=== PATIENT | male | born 1950 | race African-American/Black ===

== ENCOUNTER 2018-01-05 22:55 | Emergency (ER) | payer OTHER ==
[~2018-01-05] VITALS: Ht 175.3 cm; Wt 90.7 kg
--- NOTE | 2018-01-05 23:35 | ED GENERAL ADULT ---
History of Present Illness General Chief Complaint: General Adult Stated Complaint: BIBA "COUGHING UP BLOOD, AND URINARY PAIN" Source: patient Exam Limitations: no limitations Vital Signs & Intake/Output Vital Signs & Intake/Output Vital Signs Date Time Temp Pulse Resp B/P B/P Pulse O2 O2 Flow FiO2 Mean Ox Delivery Rate 01/06 0152 96 18 194/92 01/06 0003 98 01/05 2303 98 Room Air 01/05 2259 98.4 96 20 194/92 98 Room Air ED Intake and Output 01/06 0000 01/05 1200 Intake Total Output Total Balance Patient 200 lb Weight Weight Estimated Measurement Method Allergies Coded Allergies: No Known Allergies (01/05/18) Reconcile Medications Albuterol Sulfate (Ventolin Hfa) 90 MCG HFA.AER.AD 2 PUF INH Q4-6 PRN PRN WHEEZING Labetalol HCl 300 MG TABLET 1 TAB PO BID HIGH BLOOD PRESSURE Levofloxacin (Levaquin) 500 MG TABLET 1 TAB PO DAILY BRONCHITIS, UTI Metformin HCl 500 MG TABLET 1 TAB PO BID DIABETES Mupirocin Calcium (Bactroban Nasal) 2 % OINT...G. 1 GM TOP TID AFFECTED SKIN BACTROBAN OINTMENT.... APPLY TO AFFECTED AREA TID X 10 DAYS Tamsulosin HCl (Flomax) 0.4 MG CAP.ER.24H 1 CAP PO DAILY DIFFICULTY URINATING Triage Note: BIBA FROM HOME FOR C/O CO;D AND CPUGH X 4 DAYS. PT REPORTS HAVING AN EPISODE OF COUGHING UP BLOOD X1. PER EMS PT WAS HOMELESS AN JUST GOT AN APARTMENT. PT HAS DIABETES AND HTN THAT IS NOT BEING TREATED. PT HAS A WOUND TO RIGHT LOWER LEG. Triage Nurses Notes Reviewed? yes Onset: Gradual Duration: week(s): Timing: recent history Injury Environment: home Severity: mild, moderate Modifying Factors: Worsens With: other (worse w/ cough). Associated Symptoms: cough HPI: 67 yo gentleman h/o diabetes, htn, off his meds x several months, presents with 1-2 weeks of cough w/ phlegm, "and there were streaks of blood in the sputum," associated wheezing. He notes also increased urination with burning for the past 1-2 weeks. He notes no fever, chills, chest pain, nausea, vomiting, diarrhea. Past History Travel History Traveled to [place] past 21 day No Medical History Any Pertinent Medical History? see below for history Cardiovascular: hypertension Endocrine: diabetes Surgical History Surgical History: non-contributory Psychosocial History What is your primary language Upper Sorbian Tobacco Use: Never used Family History Hx Contributory? No Review of Systems Review of Systems Constitutional: Reports: no symptoms. EENTM: Reports: no symptoms. Respiratory: Reports: no symptoms. Cardiovascular: Reports: no symptoms. GI: Reports: no symptoms. Genitourinary: Reports: no symptoms. Musculoskeletal: Reports: no symptoms. Skin: Reports: no symptoms. Neurological/Psychological: Reports: no symptoms. Hematologic/Endocrine: Reports: no symptoms. Immunologic/Allergic: Reports: no symptoms. All Other Systems: Reviewed and Negative Physical Exam Physical Exam General Appearance: well developed/nourished Head: atraumatic, normal appearance Eyes: Bilateral: normal appearance. Ears, Nose, Throat: normal pharynx, normal ENT inspection, hearing grossly normal Neck: normal inspection, supple, full range of motion Respiratory: normal breath sounds, chest non-tender, no respiratory distress, quiet respiration, lungs clear Cardiovascular: regular rate/rhythm Gastrointestinal: normal bowel sounds, soft, non-tender, no organomegaly Back: normal inspection Extremities: right calf with superficial abrasion. no significant infection Neurologic/Psych: no motor/sensory deficits, awake, alert, oriented x 3 Skin: intact, normal color, warm/dry Core Measures ACS in differential dx? No CVA/TIA Diagnosis: No Sepsis Present: No Sepsis Focused Exam Completed? No Progress Differential Diagnoses I considered the following diagnoses in my evaluation of the patient: bronchitis vs uti vs other. Plan of Care: Orders Procedure Date/time Status URINALYSIS 01/06 2344 Complete TROPONIN LEVEL 01/05 2335 Complete LIPASE 01/05 2335 Complete HEPATIC FUNCTION PANEL 01/05 2335 Complete D-DIMER 01/05 2335 Complete CBC WITHOUT DIFFERENTIAL 01/05 2335 Complete BASIC METABOLIC PANEL 01/05 2335 Complete AMYLASE 01/05 2335 Complete EKG 01/05 2335 Active Laboratory Tests 01/06/18 0008: Anion Gap 7, Estimated GFR > 60, BUN/Creatinine Ratio 13.3, Glucose 177 H, Calcium 8.3 L, Total Bilirubin 0.4, Direct Bilirubin 0.4, AST 21, ALT 30, Alkaline Phosphatase 107, Troponin I 0.03, Total Protein 6.5, Albumin 3.1 L, Amylase 56, Lipase 152, D-Dimer High Sensitivty 322 H, CBC w Diff NO MAN DIFF REQ, RBC 4.98, MCV 74.1 L, MCH 23.5 L, MCHC 31.7 L, RDW 16.4 H, MPV 7.4, Gran % 73.9, Lymphocytes % 10.3 L, Monocytes % 11.7 H, Eosinophils % 3.8, Basophils % 0.3, Absolute Granulocytes 7.8 H, Absolute Lymphocytes 1.1 L, Absolute Monocytes 1.2 H, Absolute Eosinophils 0.4, Absolute Basophils 0 01/05/18 9607: Urinalysis MOD H, Urine Color STRAW, Urine Clarity HAZY H, Urine pH 6.5, Ur Specific [place] 1.010, Urine Protein 30 H, Urine Ketones NEG, Urine Nitrite NEG, Urine Bilirubin NEG, Urine Urobilinogen 0.2, Ur Leukocyte Esterase LARGE H , Ur Microscopic SEDIMENT EXAMINED, Urine RBC 25-50 H, Urine WBC PACKD H, Urine Bacteria MOD H, Urine Hemoglobin MOD H, Urine Glucose NEG Diagnostic Imaging: Viewed by Me: Radiology Read. Discussed w/RAD: Radiology Read. CXR Impression: PATIENT: LYLY RUBY PRESENT AGE: 67 PATIENT ACCOUNT NO: [id number] : 49 LOCATION: [facility] ORDERING PHYSICIAN: Samuel Philippe MD SERVICE DATE: 01/05/18 EXAM TYPE: RAD - XRY- PORTABLE CHEST XRAY EXAMINATION: XR PORTABLE CHEST CLINICAL INFORMATION: Chest pain. COMPARISON: None TECHNIQUE: Portable frontal view of the chest was obtained. FINDINGS: No airspace opacities or pleural effusions are seen. The cardiomediastinal silhouette is normal. No acute osseous abnormality is seen. IMPRESSION: No acute cardiopulmonary process. DICTATED BY: Johnson Luo MD DATE/TIME DICTATED:01/06/18 [employer] OPERATOR:YOGESH DATE/TIME TRANSCRIBED:01/06/18 CONFIDENTIAL, DO NOT COPY WITHOUT APPROPRIATE AUTHORIZATION. <Electronically signed in Other Vendor System> SIGNED BY: Johnson Luo MD 01/06/18 0004 Initial ED EKG: lvh, no acute changes. nsr. Departure Departure Disposition: HOME OR SELF CARE Condition: Stable Clinical Impression Primary Impression: Bronchitis Secondary Impressions: Abrasion, Hypertension, UTI (urinary tract infection) Referrals: Patient Has No Primary Care Dr (PCP/Family) Departure Forms: Customer Survey General Discharge Information Prescriptions: Current Visit Scripts Levofloxacin (Levaquin) 1 TAB PO DAILY #14 TAB Albuterol Sulfate (Ventolin Hfa) 2 PUF INH Q4-6 PRN PRN WHEEZING #1 INHAL Ref 1 Tamsulosin HCl (Flomax) 1 CAP PO DAILY #20 CAP Metformin HCl 1 TAB PO BID #60 TAB Labetalol HCl 1 TAB PO BID #60 TAB Mupirocin Calcium (Bactroban Nasal) 1 GM TOP TID #10 GM BACTROBAN OINTMENT.... APPLY TO AFFECTED AREA TID X 10 DAYS Comments 01/06/18, 1:12am... pt feeling better... negative trop, negative dimer by age criteria. discussed at length with patient... he has not taken his medications for several months. i restarted his metformin, wrote for labetolol, and gave levaquin which should cover community acquired bronchitis as well as uti. He will re-connect with his PMD. Critical Care Note Critical Care Note Critical Care Time: non-applicable
--- NOTE | 2018-01-06 00:04 | RADIOLOGY REPORT ---
EXAMINATION: XR PORTABLE CHEST CLINICAL INFORMATION: Chest pain. COMPARISON: None TECHNIQUE: Portable frontal view of the chest was obtained. FINDINGS: No airspace opacities or pleural effusions are seen. The cardiomediastinal silhouette is normal. No acute osseous abnormality is seen. IMPRESSION: No acute cardiopulmonary process.
[2018-01-06 00:24] LABS: ABSOLUTE BASOPHIL COUNT 0 /CUMM (0.0-0.2); ABSOLUTE EOSINOPHIL COUNT 0.4 /CUMM (0.0-0.7); ABSOLUTE GRANULOCYTE CT 7.8 /CUMM (1.4-6.5); ABSOLUTE LYMPH COUNT 1.1 /CUMM (1.2-3.4); ABSOLUTE MONOCYTE COUNT 1.2 /CUMM (0.10-0.60); BASOPHIL % 0.3 % (0.0-2.0); EOSINOPHIL % 3.8 % (0-5); GRANULOCYTE % 73.9 % (42.2-75.2); HEMATOCRIT 36.9 % (42-52); MEAN CORPUSCULAR HGB 23.5 PG (27.0-31.0); MEAN CORPUSCULAR HGB CONC 31.7 G/DL (33.0-37.0); MEAN CORPUSCULAR VOLUME 74.1 FL (80.0-94.0); MEAN PLATELET VOLUME 7.4 FL (7.4-10.4); PLATELET COUNT 302 /CUMM (130-400); RBC DISTRIBUTION WIDTH 16.4 % (11.5-14.5); RED BLOOD CELL CT 4.98 /CUMM (4.70-6.10); WHITE BLOOD CELL COUNT 10.5 /CUMM (4.8-10.8)
[2018-01-06] MEDS ORDERED: FLOMAX0.4 M1 PO (01:17)
[2018-01-06] MEDS ORDERED: VENTOLIN HFA18 GM INH (01:17)
[2018-01-06] MEDS ORDERED: LEVAQUIN500 M1 PO (01:17)
[2018-01-06] MEDS ORDERED: LABETALOL HCL300 M1 PO (01:17)
[2018-01-06] MEDS ORDERED: METFORMIN HCL500 M3 PO (01:17)
[2018-01-06] MEDS ORDERED: BACTROBAN NASAL1 GM TOP (01:19)
[2018-01-06 01:52] VITALS: BP 194/92
== END 2018-01-06 02:03 ==
LOC: ERH 22:55
PROVIDERS: Pediatrics
DX: T14.8XXA Other injury of unspecified body region, initial encounter (principal); J40 Bronchitis, not specified as acute or chronic; N39.0 Urinary tract infection, site not specified; I10 Essential (primary) hypertension; X58.XXXA Exposure to other specified factors, initial encounter; Y92.9 Unspecified place or not applicable; Y93.9 Activity, unspecified
CPT/HCPCS: 1263; 71045; 81001; 93005; 93010; J3490

== ENCOUNTER 2018-02-25 17:48 | Inpatient (IN) | payer OTHER ==
[~2018-02-25] VITALS: Ht 180.3 cm; Wt 78.5 kg
[~2018-02-25 17:48] MED LIST: BACTROBAN NASAL1 GM TOP; FLOMAX0.4 M1 PO; LABETALOL HCL300 M1 PO; LEVAQUIN500 M1 PO; METFORMIN HCL500 M3 PO; VENTOLIN HFA18 GM INH
--- NOTE | 2018-02-25 18:13 | ED GENERAL ADULT ---
History of Present Illness General Chief Complaint: General Adult Stated Complaint: BIBA WITH LEG EDEMA IN BOTH LEGS Source: patient, old records, EMS Exam Limitations: poor historian Vital Signs & Intake/Output Vital Signs & Intake/Output Vital Signs Date Time Temp Pulse Resp B/P B/P Pulse O2 O2 Flow FiO2 Mean Ox Delivery Rate 02/25 2130 97.4 97 18 173/87 100 Nasal 2.0L Cannula 02/25 1939 94 Nasal 3.0L Cannula 02/25 1753 97.3 92 18 190/87 97 Nasal 3.0L Cannula Allergies Coded Allergies: No Known Allergies (01/05/18) Reconcile Medications Albuterol Sulfate (Ventolin Hfa) 90 MCG HFA.AER.AD 2 PUF INH Q4-6 PRN PRN WHEEZING Labetalol HCl 300 MG TABLET 1 TAB PO BID HIGH BLOOD PRESSURE Levofloxacin (Levaquin) 500 MG TABLET 1 TAB PO DAILY BRONCHITIS, UTI Metformin HCl 500 MG TABLET 1 TAB PO BID DIABETES Mupirocin Calcium (Bactroban Nasal) 2 % OINT...G. 1 GM TOP TID AFFECTED SKIN BACTROBAN OINTMENT.... APPLY TO AFFECTED AREA TID X 10 DAYS Tamsulosin HCl (Flomax) 0.4 MG CAP.ER.24H 1 CAP PO DAILY DIFFICULTY URINATING Triage Nurses Notes Reviewed? yes Onset: Abrupt Duration: day(s): (1), constant, continues in ED, getting worse Timing: single episode today Injury Environment: home Severity: mild, moderate No Modifying Factors: none HPI: 59-year-old male history of hypertension and diabetes sensory evaluation of painful swollen lesions on his right lower extremity. Patient states that he is unsure exactly how long the lesions have been present but today noticed that his right lower extremity appeared swollen and black. He reports that he has also been letting off lots of discharge. He denies any fever but reports that he has been having chills recently. He also admits to cough and shortness of breath. The symptoms are worse on exertion. He denies any chest pain dizziness or lightheadedness. He reports he has not seen a doctor in many months and has not taken any medicine in a month. He is a current every day smoker. (Aaron Martin) Past History Travel History Traveled to [place] past 21 day Yes Medical History Any Pertinent Medical History? see below for history Cardiovascular: hypertension Endocrine: diabetes Surgical History Surgical History: non-contributory Psychosocial History What is your primary language Lao Family History Hx Contributory? No (Aaron Martin) Review of Systems Review of Systems Constitutional: Reports: no symptoms. EENTM: Reports: no symptoms. Respiratory: Reports: see HPI, cough, short of breath. Cardiovascular: Reports: peripheral edema. GI: Reports: no symptoms. Genitourinary: Reports: no symptoms. Musculoskeletal: Reports: no symptoms. Skin: Reports: no symptoms. Neurological/Psychological: Reports: no symptoms. Hematologic/Endocrine: Reports: no symptoms. Immunologic/Allergic: Reports: no symptoms. All Other Systems: Reviewed and Negative (Aaron Martin) Physical Exam Physical Exam General Appearance: well developed/nourished, no apparent distress, alert, awake Head: atraumatic, normal appearance Eyes: Bilateral: normal appearance, PERRL, EOMI. Ears, Nose, Throat: normal pharynx, normal ENT inspection, hearing grossly normal Neck: normal inspection, supple, full range of motion Respiratory: chest non-tender, no respiratory distress, crackles, wheezing Cardiovascular: regular rate/rhythm, normal peripheral pulses Peripheral Pulses: 2+ radial (R), 2+ radial (L) Gastrointestinal: normal bowel sounds, soft, non-tender, no organomegaly Back: normal inspection, normal range of motion Extremities: THERE IS BILATERAL LOWER EXTREMITY EDEMA. tHERE IS A 5 CM ULCERATION LOCATED ON THE RIGHT POSTERIOR LOWER EXTREMITY. tHERE IS WEEPING OF SEROUS DISCHARGE. nO UNDERLYING ERYTHEMA AND NO PURULENT DISCHARGE IT IS TENDER TO PALPATION NO FOCAL FLUCTUANT AREAS Neurologic/Psych: no motor/sensory deficits, awake, alert, oriented x 3 Skin: intact, normal color, warm/dry Lymphatic: no anterior cervical tom Core Measures ACS in differential dx? No CVA/TIA Diagnosis: No Sepsis Present: No Sepsis Focused Exam Completed? No (Aaron Martin) Progress Differential Diagnoses I considered the following diagnoses in my evaluation of the patient: [CHF exacerbation, COPD exacerbation, acute coronary syndrome, electrolyte abnormality, osteomyelitis, DVT, cellulitis, peripheral vascular disease] Plan of Care: Orders Procedure Date/time Status Heart Healthy Diet 02/26 B Active Misc Message 02/26 2244 Active ED Holding Orders 02/26 2244 Active Patient Data 02/26 2244 Active Vital Signs 02/26 2244 Active Code Status 06/12 2244 Active Admit to inpatient 02/25 2238 Active TROPONIN LEVEL 02/25 2208 Active EKG 02/25 220 Active URINE DRUG SCREEN FOR ER ONLY 02/25 2144 Active Add-on Test (ER Only) 02/26 2036 Active Add-on Test (ER Only) 02/25 1923 Active BLOOD CULTURE 02/25 1922 Active D-DIMER 02/25 192 Complete ETHANOL 02/25 1815 Complete Add-on Test (ER Only) 02/25 180 Active BLOOD CULTURE 02/25 180 Active URINALYSIS 02/25 1753 Complete TROPONIN LEVEL 02/25 1753 Complete LACTIC ACID 02/25 1753 Complete WESTERGREN SED RATE 02/25 1753 Complete C-REACTIVE PROTEIN 02/25 1753 Complete COMPREHENSIVE METABOLIC PANEL 02/25 1753 Complete CBC WITHOUT DIFFERENTIAL 02/25 175 Complete B-TYPE NATRIURETIC PEP (BNP) 02/25 175 Complete EKG 02/25 1753 Active Current Medications Sig/Wil Start time Last Medication Dose Stop Time Status Admin Nitroglycerin 1 GM ONCE ONE 02/25 2230 UNVr 02/25 (Nitro-Bid) 02/25 2231 223 Laboratory Tests 02/25/185: Urine Opiates Screen Pending, Methadone Screen Pending, Barbiturate Screen Pending, Ur Phencyclidine Scrn Pending, Amphetamines Screen Pending, U Benzodiazepines Scrn Pending, Urine Cocaine Screen Pending, Urine Cannabis Screen Pending, Urine Color YEL, Urine Clarity CLEAR, Urine pH 6.5, Ur Specific [place] 1.010, Urine Protein 30 H, Urine Ketones NEG, Urine Nitrite NEG, Urine Bilirubin NEG, Urine Urobilinogen 0.2, Ur Leukocyte Esterase NEG, Ur Microscopic SEDIMENT EXAMINED, Urine RBC RARE, Urine WBC RARE, Ur Epithelial Cells RARE, Urine Bacteria RARE H, Urine Hemoglobin NEG, Urine Glucose NEG 02/25/181921: D-Dimer High Sensitivty 238 02/25/181814: Anion Gap 7, Estimated GFR > 60, BUN/Creatinine Ratio 11.1, Glucose 113 H, Lactic Acid 1.4, Calcium 8.8, Total Bilirubin 0.2, AST 20, ALT 21, Alkaline Phosphatase 137 H, Troponin I 0.02, C-Reactive Prot, Quant 1.5 H, Pro-B- Natriuretic Pept 3730 H, Total Protein 6.8, Albumin 3.1 L, Globulin 3.7, Albumin/Globulin Ratio 0.8 L, CBC w Diff NO MAN DIFF REQ, RBC 5.58, MCV 72.8 L , MCH 22.6 L, MCHC 31.0 L, RDW 16.6 H, MPV 7.3 L, Gran % 66.1, Lymphocytes % 16.8 L, Monocytes % 8.8, Eosinophils % 7.9 H, Basophils % 0.4, Absolute Granulocytes 4.6, Absolute Lymphocytes 1.2, Absolute Monocytes 0.6, Absolute Eosinophils 0.6, Absolute Basophils 0, ESR Westergren 11 H, Serum Alcohol < 10.0 Microbiology 02/25 1950 BLOOD: Blood Culture - RECD 02/25 1922 BLOOD: Blood Culture - RECD 02/25 1815 BLOOD: Blood Culture - CAN Cancelled: Quantity not sufficient for both blood culture bottles. Patient seen and evaluated. He is here with bilateral lower exterminate edema shortness of breath and right lower trauma wounds. On exam he's got crackles and wheezing. He currently is on oxygen 2 L nasal cannula. This is removed he desaturates to the 80s. He has a right lower extremity ulcerated lesion located to the posterior right lower leg there is also macerated tissue to the heel. X- rays of the heel obtained. Labs chest x-ray EKG ordered. Patient was given a DuoNeb for his wheezing. EKG shows lateral ST wave depressions that are new. His ST elevations are not new and appear unchanged. Blood work shows elevated BNP. D-dimer is negative. Sedimentation rate and CRP are only mildly elevated. No white count. X-ray of the heel is negative. Chest x-ray shows airspace disease. A CT of the chest will be obtained for further evaluation due to patient's hypoxia. CT the chest shows interstitial edema. IV Lasix and Nitropaste ordered. Patient will require admission to the hospital. Case discussed with Dr. Low he agrees. Diagnostic Imaging: Viewed by Me: Radiology Read. Discussed w/RAD: Radiology Read. Radiology Impression: PATIENT: LYLY RUBY PRESENT AGE: 67 PATIENT ACCOUNT NO: [id number] : 49 LOCATION: [facility] ORDERING PHYSICIAN: Aaron HOYOS SERVICE DATE: 02/25/18 EXAM TYPE: RAD - XRY- HEEL, RIGHT EXAMINATION: XR CALCANEUS, RIGHT CLINICAL INFORMATION: Right foot ulceration at the plantar aspect of the calcaneus. Poorly controlled diabetes. Diagnosis of osteomyelitis. COMPARISON: None TECHNIQUE: Lateral and axial views of the right calcaneus were obtained. FINDINGS: Minimal osteoarthritis is present at the talocrural navicular and naviculocuneiform joints. No fracture or malalignment. Soft tissues are swollen. No radiographic findings of osteomyelitis. IMPRESSION: Soft tissue swelling at the hindfoot. No radiographic findings of osteomyelitis. DICTATED BY: Jair Moran MD DATE/TIME DICTATED:09/02 ER PHYSICIAN:YOGESH DATE/TIME TRANSCRIBED:02/25/182011 CONFIDENTIAL, DO NOT COPY WITHOUT APPROPRIATE AUTHORIZATION. <Electronically signed in Other Vendor System> SIGNED BY: Jair Moran MD 02/25/18 2, PATIENT: LYLY RUBY PRESENT AGE: 67 PATIENT ACCOUNT NO: [id number] : 49 LOCATION: [facility] ORDERING PHYSICIAN: Aaron HOYOS SERVICE DATE: 02/25/18 EXAM TYPE: RAD - XRY-PORTABLE CHEST XRAY EXAMINATION: XR PORTABLE CHEST CLINICAL INFORMATION: CHF. Lower extremity edema. COMPARISON: Chest radiograph 01/05/2018. TECHNIQUE: Portable frontal view of the chest was obtained. FINDINGS: There is background prominence of the interstitium and mild peribronchial thickening. There is no dense consolidation, alveolar edema, pleural effusion, or pneumothorax. The heart is top normal in size allowing for patient rotation. The osseous structures are intact. IMPRESSION: Background prominence of the interstitium with peribronchial thickening. The findings are nonspecific but could reflect small airways disease. DICTATED BY: Everardo Solis MD DATE/TIME DICTATED:02/25/181832 ER PHYSICIAN:YOGESH DATE/TIME TRANSCRIBED:02/25/181832 CONFIDENTIAL, DO NOT COPY WITHOUT APPROPRIATE AUTHORIZATION. <Electronically signed in Other Vendor System> SIGNED BY: Everardo Solis MD 02/25/181838, PATIENT: LYLY RUBY PRESENT AGE: 67 PATIENT ACCOUNT NO: [id number] : 49 LOCATION: [facility] ORDERING PHYSICIAN: Aaron HOYOS SERVICE DATE: 02/25/18 EXAM TYPE: CAT - CT CHEST WO IV CONTRAST EXAMINATION: CT CHEST WITHOUT CONTRAST CLINICAL INFORMATION: Shortness of breath. Hypoxia. Presumptive diagnosis: Pneumonia, edema COMPARISON: Chest radiograph from the same date TECHNIQUE: Multidetector volumetric CT imaging of the chest was done. Axial MIP volume rendering provided. Sagittal and coronal reformatted images were obtained. DLP: 234 mGy-cm FINDINGS: LUNGS: Centrilobular emphysema is present in the upper lobes bilaterally, right greater than left. There is interlobular septal thickening in the lung bases as well as the lung apices in addition to thickening of the peribronchial vascular interstitium centrally, consistent with interstitial edema. Patchy foci of groundglass attenuation in the upper and lower lobes likely correspond to very early foci of alveolar edema. No velasquez consolidation is identified. No discrete pulmonary nodules are identified, though sensitivity is limited by the background interstitial opacities. MEDIASTINUM: Mild cardiomegaly. Calcific atherosclerosis is present in the coronary arteries. Thoracic aorta is normal in caliber with mild calcific atherosclerosis. No appreciable mediastinal or hilar adenopathy. PLEURA: Trace right pleural effusion. AXILLA: No lymphadenopathy. UPPER ABDOMEN: Multiple sharply demarcated hypoattenuating foci are present in the liver, most compatible with cysts. The largest of these is a water density 4.4 cm cyst in hepatic segment 5 medially. A 2 cm cystic focus is present in hepatic segment 4A superiorly. Gallbladder is unremarkable. There is relative atrophy of the left kidney. OSSEOUS STRUCTURES: Mild multilevel degenerative disc disease present in the thoracic spine. A fracture is present at the seventh rib posterolaterally, likely subacute in nature given the bone resorption at the margins. IMPRESSION: 1. Mild cardiomegaly with pulmonary interstitial edema with subtle findings of early alveolar edema, and a trace right-sided effusion. 2. Mild to moderate centrilobular emphysema 3. Fracture of the right seventh rib posteriorly, likely subacute. DICTATED BY: Jair Moran MD DATE/TIME DICTATED:02/25/182209 ER PHYSICIAN:YOGESH DATE/TIME TRANSCRIBED:02/25/182209 CONFIDENTIAL, DO NOT COPY WITHOUT APPROPRIATE AUTHORIZATION. Initial ED EKG: normal sinus rhythm, LVH, LEFT ATRIAL ABN, ANTERIOR ST ELEVATIONS UNCHANGED FROM PREVIOUS, ST WAVE CHANGES IN LATERAL LEADS Prior EKG: changed Comments: PATIENT: LYLY RUBY PRESENT AGE: 67 PATIENT ACCOUNT NO: [id number] : 49 LOCATION: [facility] ORDERING PHYSICIAN: Aaron HOYOS SERVICE DATE: 02/25/18 EXAM TYPE: RAD - XRY-PORTABLE CHEST XRAY EXAMINATION: XR PORTABLE CHEST CLINICAL INFORMATION: CHF. Lower extremity edema. COMPARISON: Chest radiograph 01/05/2018. TECHNIQUE: Portable frontal view of the chest was obtained. FINDINGS: There is background prominence of the interstitium and mild peribronchial thickening. There is no dense consolidation, alveolar edema, pleural effusion, or pneumothorax. The heart is top normal in size allowing for patient rotation. The osseous structures are intact. IMPRESSION: Background prominence of the interstitium with peribronchial thickening. The findings are nonspecific but could reflect small airways disease. DICTATED BY: Everardo Solis MD DATE/TIME DICTATED:02/25/181832 ER PHYSICIAN:YOGESH DATE/TIME TRANSCRIBED:02/25/181832 CONFIDENTIAL, DO NOT COPY WITHOUT APPROPRIATE AUTHORIZATION. (Aaron Martin) Comments: 02/25/2018 6:17:27 PM patient's EKG shows ST segment elevations in the anterior leads that are similar to a prior EKG. The patient does have T-wave inversions laterally that are new compared to previous. The patient denies chest pain and these changes are of an unclear nature. A troponin will be checked and patient' s vital signs monitored. (Maranda GUERRERO,Corby Mcdonald) Departure Departure Disposition: STILL A PATIENT Condition: Stable Clinical Impression Primary Impression: CHF exacerbation Qualifiers: Heart failure type: unspecified Qualified Code: I50.9 - Heart failure, unspecified Secondary Impressions: Acute electrocardiogram changes Referrals: Patient Has No Primary Care Dr (PCP/Family) Departure Forms: Customer Survey General Discharge Information Admission Note Spoke With: Jazz GUERRERO,Varsha Documentation of Exam: Documentation of any treatments & extenuating circumstances including Concerns Regarding Discharge (functional status, medication knowledge or non-compliance, living conditions, etc.) that warrant an admission rather than observation: [IV diuresis, cardiology consult, echocardiogram, telemetry, serial labs, serial chest x-rays, DuoNeb's, serial EKGs] (Aaron Martin) PA/ANIMAL KEEPER HEAD Co-Sign Statement Statement: ED Attending supervision documentation- [x] I saw and evaluated the patient. I have also reviewed all the pertinent lab results and diagnostic results. I agree with the findings and the plan of care as documented in the PA's/ANIMAL KEEPER HEAD's documentation. Patient presents for evaluation of worsening lower extremity edema with skin ulcerations. Physical examination reveals a comfortable appearing gentleman with 2-3+ lower extremity pitting edema and scattered ulcerations. Patient denies chest discomfort currently. [] I have reviewed the ED Record and agree with the PA's/ANIMAL KEEPER HEAD's documentation. [] Additions or exceptions (if any) to the PAs/ANIMAL KEEPER HEAD's note and plan are summarized below: [] (Maranda GUERRERO,Corby Mcdonald) Critical Care Note Critical Care Note Critical Care Time: non-applicable (Aaron Martin)
[2018-02-25 18:35] LABS: ABSOLUTE BASOPHIL COUNT 0 /CUMM (0.0-0.2); ABSOLUTE EOSINOPHIL COUNT 0.6 /CUMM (0.0-0.7); ABSOLUTE GRANULOCYTE CT 4.6 /CUMM (1.4-6.5); ABSOLUTE LYMPH COUNT 1.2 /CUMM (1.2-3.4); ABSOLUTE MONOCYTE COUNT 0.6 /CUMM (0.10-0.60); BASOPHIL % 0.4 % (0.0-2.0); EOSINOPHIL % 7.9 % (0-5); GRANULOCYTE % 66.1 % (42.2-75.2); HEMATOCRIT 40.6 % (42-52); MEAN CORPUSCULAR HGB 22.6 PG (27.0-31.0); MEAN CORPUSCULAR VOLUME 72.8 FL (80.0-94.0); MEAN PLATELET VOLUME 7.3 FL (7.4-10.4); PLATELET COUNT 332 /CUMM (130-400); RBC DISTRIBUTION WIDTH 16.6 % (11.5-14.5); RED BLOOD CELL CT 5.58 /CUMM (4.70-6.10)
--- NOTE | 2018-02-25 18:39 | RADIOLOGY REPORT ---
EXAMINATION: XR PORTABLE CHEST CLINICAL INFORMATION: CHF. Lower extremity edema. COMPARISON: Chest radiograph 01/05/2018. TECHNIQUE: Portable frontal view of the chest was obtained. FINDINGS: There is background prominence of the interstitium and mild peribronchial thickening. There is no dense consolidation, alveolar edema, pleural effusion, or pneumothorax. The heart is top normal in size allowing for patient rotation. The osseous structures are intact. IMPRESSION: Background prominence of the interstitium with peribronchial thickening. The findings are nonspecific but could reflect small airways disease.
--- NOTE | 2018-02-25 20:16 | RADIOLOGY REPORT ---
EXAMINATION: XR CALCANEUS, RIGHT CLINICAL INFORMATION: Right foot ulceration at the plantar aspect of the calcaneus. Poorly controlled diabetes. Diagnosis of osteomyelitis. COMPARISON: None TECHNIQUE: Lateral and axial views of the right calcaneus were obtained. FINDINGS: Minimal osteoarthritis is present at the talocrural navicular and naviculocuneiform joints. No fracture or malalignment. Soft tissues are swollen. No radiographic findings of osteomyelitis. IMPRESSION: Soft tissue swelling at the hindfoot. No radiographic findings of osteomyelitis.
--- NOTE | 2018-02-25 22:21 | CT SCAN REPORT ---
EXAMINATION: CT CHEST WITHOUT CONTRAST CLINICAL INFORMATION: Shortness of breath. Hypoxia. Presumptive diagnosis: Pneumonia, edema COMPARISON: Chest radiograph from the same date TECHNIQUE: Multidetector volumetric CT imaging of the chest was done. Axial MIP volume rendering provided. Sagittal and coronal reformatted images were obtained. DLP: 234 mGy-cm FINDINGS: LUNGS: Centrilobular emphysema is present in the upper lobes bilaterally, right greater than left. There is interlobular septal thickening in the lung bases as well as the lung apices in addition to thickening of the peribronchial vascular interstitium centrally, consistent with interstitial edema. Patchy foci of groundglass attenuation in the upper and lower lobes likely correspond to very early foci of alveolar edema. No velasquez consolidation is identified. No discrete pulmonary nodules are identified, though sensitivity is limited by the background interstitial opacities. MEDIASTINUM: Mild cardiomegaly. Calcific atherosclerosis is present in the coronary arteries. Thoracic aorta is normal in caliber with mild calcific atherosclerosis. No appreciable mediastinal or hilar adenopathy. PLEURA: Trace right pleural effusion. AXILLA: No lymphadenopathy. UPPER ABDOMEN: Multiple sharply demarcated hypoattenuating foci are present in the liver, most compatible with cysts. The largest of these is a water density 4.4 cm cyst in hepatic segment 5 medially. A 2 cm cystic focus is present in hepatic segment 4A superiorly. Gallbladder is unremarkable. There is relative atrophy of the left kidney. OSSEOUS STRUCTURES: Mild multilevel degenerative disc disease present in the thoracic spine. A fracture is present at the seventh rib posterolaterally, likely subacute in nature given the bone resorption at the margins. IMPRESSION: 1. Mild cardiomegaly with pulmonary interstitial edema with subtle findings of early alveolar edema, and a trace right-sided effusion. 2. Mild to moderate centrilobular emphysema 3. Fracture of the right seventh rib posteriorly, likely subacute.
--- NOTE | 2018-02-25 23:14 | History & Physical ---
Taylor Padilla MD,[facility] 02/25/18 2314: General Information and HPI MD Statement: I have seen and personally examined LYLY RUBY and documented this H&P. The patient is a 67 year old M who presented with a patient stated chief complaint of [swelling of leg]. Source of Information: patient Exam Limitations: poor historian History of Present Illness: Patient is 67 Y M with PMH of HTN, DM was BIBA to ED for evaluation of bilateral LE swelling. Patient is poor historian, he had no other contact info, no close friend, no family member except his old mother in facility in [place], he also was homeless for 9 months before moving to [place] in December 2017. Patient noted that for the last several months as he had increased swelling of bilateral lower extremity, but he couldn't remember any specific day. This morning he noticed his R LE was more swollen and turned to black (after which he called EMS and was transferred to ED), which was associated with increased sharp pain over the foot area. He also noted fluid discharge from bilateral LE skin lesions. he reported some chills but denied any fever. He also reported SOB, especialy with excertion, cough (?sputum) but denied any chest pain. Patient noted he didn't see a doctor for a long time except a recent visit that he had to ED at [facility] in December for bronchitis/UTI for which she received Levaquin. His other medications including blood sugar medications were re- filled but he ran out of them for long time and did not take any medications for the last month. He was also instructed to follow with his PCP which he did not do. His baseline is independent, he is able to walk occasionally with assistance of a johnston, lives in an apartment currently. He reported smoking a daily basis but tonight drinking alcohol or other recreational drugs. Allergies/Medications Allergies: Coded Allergies: No Known Allergies (01/05/18) Past History Travel History Traveled to [place] past 21 day Yes Medical History Neurological: NONE EENT: NONE Cardiovascular: hypertension Respiratory: NONE Gastrointestinal: NONE Hepatic: NONE Renal: NONE Musculoskeletal: NONE Psychiatric: NONE Endocrine: diabetes Surgical History Surgical History: non-contributory Review of Systems Review of Systems Constitutional: Reports: see HPI. Exam & Diagnostic Data Last 24 Hrs of Vital Signs/I&O Vital Signs Date Time Temp Pulse Resp B/P B/P Pulse O2 O2 Flow FiO2 Mean Ox Delivery Rate 02/26 0009 98.7 102 22 168/99 98 Nasal 2.0L Cannula 02/25 2130 97.4 97 18 173/87 100 Nasal 2.0L Cannula 02/25 1939 94 Nasal 3.0L Cannula 02/25 1753 97.3 92 18 190/87 97 Nasal 3.0L Cannula Intake & Output 02/26 0800 02/26 0000 02/25 1600 Intake Total Output Total 300 1000 Balance -300 -1000 Output, Urine 300 1000 Patient 225 lb Weight Physical Exam General Appearance Alert, Oriented X3, No Acute Distress, not cooperative Skin bilateral LE edema, skin changes, skin color changes bilaterally pulses present bilaterally. right foot sensitive to touch Skin Temp/Moisture Exam: Warm/Dry Sepsis Skin Exam (color): Normal for Ethnicity HEENT Atraumatic, bilateral congestion of conjectivea, closes eye to light Cardiovascular Normal S1, Normal S2, systolic murmur Lungs Clear to Auscultation, Normal Air Movement Abdomen Soft, No Tenderness Neurological Strength at 5/5 X4 Ext Extremities as noted above Vascular Pulses Symmetrical, present Last 24 Hrs of Labs/Sandro: Laboratory Tests 02/26/18 0030: Troponin I Cancelled 02/25/18 2246: Troponin I 0.02 02/25/18 2145: Urine Opiates Screen < 100, Methadone Screen < 40, Barbiturate Screen < 60, Ur Phencyclidine Scrn < 6.00, Amphetamines Screen < 100, U Benzodiazepines Scrn < 85, Urine Cocaine Screen < 50, Urine Cannabis Screen < 5.00, Urine Color YEL, Urine Clarity CLEAR, Urine pH 6.5, Ur Specific [place] 1.010, Urine Protein 30 H, Urine Ketones NEG, Urine Nitrite NEG, Urine Bilirubin NEG, Urine Urobilinogen 0.2, Ur Leukocyte Esterase NEG, Ur Microscopic SEDIMENT EXAMINED, Urine RBC RARE , Urine WBC RARE, Ur Epithelial Cells RARE, Urine Bacteria RARE H, Urine Hemoglobin NEG, Urine Glucose NEG 02/25/18 1922: D-Dimer High Sensitivty 238 02/25/18 1815: Anion Gap 7, Estimated GFR > 60, BUN/Creatinine Ratio 11.1, Glucose 113 H, Lactic Acid 1.4, Calcium 8.8, Total Bilirubin 0.2, AST 20, ALT 21, Alkaline Phosphatase 137 H, Troponin I 0.02, C-Reactive Prot, Quant 1.5 H, Pro-B- Natriuretic Pept 3730 H, Total Protein 6.8, Albumin 3.1 L, Globulin 3.7, Albumin/Globulin Ratio 0.8 L, CBC w Diff NO MAN DIFF REQ, RBC 5.58, MCV 72.8 L , MCH 22.6 L, MCHC 31.0 L, RDW 16.6 H, MPV 7.3 L, Gran % 66.1, Lymphocytes % 16.8 L, Monocytes % 8.8, Eosinophils % 7.9 H, Basophils % 0.4, Absolute Granulocytes 4.6, Absolute Lymphocytes 1.2, Absolute Monocytes 0.6, Absolute Eosinophils 0.6, Absolute Basophils 0, ESR Westergren 11 H, Serum Alcohol < 10.0 Microbiology 02/25 1950 BLOOD: Blood Culture - RECD 02/25 1922 BLOOD: Blood Culture - RECD 02/25 1815 BLOOD: Blood Culture - CAN Cancelled: Quantity not sufficient for both blood culture bottles. Assessment/Plan Assessment: Patient is 67 Y M was BIBA to ED for evaluation of bilateral LE swelling. PMH of HTN, DM VS, Ph Ex at admission: No fever, BP 190/87, saturating in 2L NC, RR and TX insignificant EKG: NSR, St elevation in v2, v3, v4, T invert v1 and V1 Labs at admission: WBC 7, WBC 12.6, MCV 72, RDW 16.6 bicarb 31, AG 7, others insignificant, Glu 113, CRP 1.5, proBNP 3730, U tox negative Urinalysis, insignificant Imagings at admission: chest xray: Background prominence of the interstitium with peribronchial thickening. The findings are nonspecific but could reflect small airways disease. Heel xray: Soft tissue swelling at the hindfoot. No radiographic findings of osteomyelitis. Chest CT: 1. Mild cardiomegaly with pulmonary interstitial edema with subtle findings of early alveolar edema, and a trace right-sided effusion. 2. Mild to moderate centrilobular emphysema 3. Fracture of the right seventh rib posteriorly, likely subacute. Patient was admitted to telemetry floor for management of following conditions: Acute pulm edema due to CHF bilateral LE edema, no sign of infection chronic medical conditions: HTN -Admit to telemetry for -Blood pressure monitor tech -O2 supplement, pulse ox -Patient received IV Lasix in the ED, losartan for blood pressure - check iron panel - HB a1c -Cardio consult in AM - Echo in AM FC DVT PPx: ALPS and lovenox Diabetic diet As Ranked By This Provider Problem List: 1. Hypertension 2. CHF exacerbation Qualifiers Heart failure type: unspecified Qualified Code: I50.9 - Heart failure, unspecified Core Measures/Misc (06/02) Acute Coronary Syndrome ACS Diagnosis: No Congestive Heart Failure Congestive Heart Failure Diagnosis Yes Cerebrovascular Accident CVA/TIA Diagnosis: No VTE (View Protocol) VTE Risk Factors Age>40 No Mechanical VTE Prophylaxis d/t N/A MechProphylax Ordered No VTE Pharm Prophylaxis d/t NA PharmProphylax ordered Sepsis (View protocol) Sepsis Present: No If YES complete Sepsis Event Note If YES complete Sepsis Event Note Anatoliy Heath 02/25/18 7176: General Information and HPI Allergies/Medications Home Med list Albuterol Sulfate (Ventolin Hfa) 90 MCG HFA.AER.AD 2 PUF INH Q4-6 PRN PRN WHEEZING Aspirin (Aspirin*) 81 MG TAB.CHEW 81 MG PO DAILY HEART HEALTH Atorvastatin Calcium 40 MG TABLET 1 TAB PO DAILY HIGH CHOLESTROL Furosemide (Lasix) 40 MG TABLET 40 MG PO 7:30 AM, & 4:30 PM WATER RETENTION Lisinopril 10 MG TABLET 10 MG PO DAILY HIGH BLOOD PRESSURE Metformin HCl 500 MG TABLET 1 TAB PO BID DIABETES Tamsulosin HCl (Flomax) 0.4 MG CAP.ER.24H 1 CAP PO DAILY DIFFICULTY URINATING Core Measures/Misc (06/02) Sepsis (View protocol) If YES complete Sepsis Event Note If YES complete Sepsis Event Note Resident Review Statement Resident Statement: examined this patient, discussed with campus recruiting intern, agreed with campus recruiting intern Other Findings: This is a 67-year-old male with past medical history of hypertension, diabetes mellitus presented to the emergency department for evaluation of painful swollen lesions of the right lower extremity which are now blackening according to him. The patient is a very poor historian, has been living on [address] for the last approximately one year, recently moved to [place] in December 2017, as per him he lives with his mother and takes care of her. He Does not have any family or any personal computer specialist , friend or neighbor other than mother whom he takes care of. He has not seen a doctor for many many years.He was at a behavioral facilty for last 30 years. At baseline he does have swelling in his bilateral lower extremity however more recently he states that they have been worsening, they are associated with sharp and dragging kind of pain and they started blackening which got him concerned and therefore he was brought in by ambulance to [facility]. He also endorses that the swelling has been associated with lots of discharge. He has some mild cough and shortness of breath which is worse on exertion. He denied any fever, chills, lightheadedness, dizziness, chest pain, diarrhea, burning urine. He is a current every day smoker smokes about 1-1/2 pack per day. He drinks alcohol occasionally. He used to smoke marijuana previously, however recently he does not smoke it. He used to use cocaine when he was young, recently he does not use it. As per him he has been living on the [address] as he lost his house. He was seen in the emergency department by Dr. Philippe January 05, 2018 for coughing up blood and urinary pain. He was found to have high blood pressure of 194/92 at that time, was given 1 tablet twice daily of labetalol. He was discharged with 14 tablets of levofloxacin for urinary tract infection, he was given an inhaler albuterol, Flomax, metformin, labetalol and mupirocin upon discharge. Other than that he has not seen any doctors for many many years, does not obviously have a primary care either. He took his medications that were prescribed from the emergency department until he ran out of it and after that he has not been taking any medications. His vitals on presentation were blood pressure of 190/87, pulse of 92, temperature 97.3, respiration of 18, he was saturating 97% on 3 L of nasal cannula. White count of 7.0, H/H of 12.6/40.6, platelet of 332. Sodium of 136, potassium of 4.4, chloride of 99, bicarb 31, BUN/creatinine 10/ 0.9, glucose 113, lactic acid 1.4, calcium of 8.8, alkaline phosphatase 137, C- reactive protein 1.5, proBNP 3730. Chest x-ray showed background prominence of interstitium with peribronchial thickening, nonspecific finding but could reflect small airway disease. X-ray of the right heel showed soft tissue swelling at the hindfoot, no radiographic findings of osteomyelitis. CT chest showed mild cardiomegaly with pulmonary interstitial edema with subtle findings of early alveolar edema, stasis right-sided effusion, mild to moderate centrilobular emphysema, fracture of the right seventh rib posteriorly likely subacute. Problem list along with assessment and plan. Problem #1 bilateral lower extremity edema with blackening of the skin, ulceration, stasis dermatitis. Problem #2 CHF exacerbation. Problem #3 history of diabetes mellitus. Problem #4 hypertension. Problem #5 COPD/emphsema Problem #6 Right foot soft tissue swelling Problem #1 CHF exacerbation -Admit the patient to telemetry floor for continuous cardiac monitoring -continue to monitor intakes and output - daily weight check -he received 1 time of IV 40 mg of Lasix while in the ER and also received nitroglycerin 1 g once daily. -Ct IV Lasix 40 mg daily for now. -Obtain echocardiogram in the a.m., cardiology consult. -Continue to monitor electrolytes while on IV diuresis. -Consider starting JOAO inhibitors. -Echocardiogram #2 Bilateral lower extremity edema with ulceration, blackening of the skin, stasis dermatitis. -Various differential of his bilateral lower extremity blackening and edema could be venous insufficiency versus peripheral arterial disease, bilateral lower extremities are warm, tender to touch on the right foot, they have overlying blebs and the skin is extremely darkened. -Pulses are weakly palpable. -Consider Vascular surgery consult. -Bilateral lower extremity ultrasound. -Continue IV diuresis, continue to monitor intakes and output, wound care consult in a.m. Problem #3 ? Possible diabetes mellitus. -Patient was previously on metformin as per his history, was prescribed metformin by Dr. Philippe while in the emergency department in December. -Continue to monitor fingersticks. -We will start NovoLog sliding scale if the sugars are high. Problem #4 hypertension. -Patient's blood pressure is on the higher side, was given labetalol by Dr. Philippe while at the ER, does not take any medications on a regular basis. -Can start him on JOAO inhibitors. Problem #5 COPD/emphysema. -TRC evaluation, continue to maintain oxygen while maintaining the saturation greater than 92%, continuous pulse oximetry, patient needs to be on inhalers. Problem #6 Right foot soft tissue swelling. -Ct right foot with iv contrast -wound care consult in am. FC CHF diet dvt px levnox Varsha Schulz 02/26/18 0549: Core Measures/Misc (06/02) Sepsis (View protocol) If YES complete Sepsis Event Note If YES complete Sepsis Event Note Attending MD Review Statement Attending Statement Attending MD Statement: examined this patient, discuss w/resident/PA/[employer], agreed w/resident/PA/[employer], reviewed EMR data (avail), reviewed images, amended to note Attending Assessment/Plan: CC: Blackening of legs PMH: DM, HTN, congestive heart failure Patient came to ER with complaint of blackish discoloration of bilateral lower extremity that he noticed today. Right foot is more painful, swollen and black colored. He also endorses fever and chills at home, dyspnea on exertion, cough but denies any chest pain, chest tightness, dizziness, lightheadedness. Patient is poor historian. He does not follow-up regularly with physicians, ran out of medications a few months back and has been noncompliant since then. He was previously seen in ER in December at that time he received prescription for labetalol, metformin and inhalers but even after that he did not follow-up with physician. He states that his abdomen is more distended than usual. Vitals: Temperature 97.3, pulse 92, RR 18, blood pressure 190/87, saturating 97% on 2 L nasal cannula On exam: A O 3, cooperative, no acute distress, neck supple, JVD elevated, no lymphadenopathy, mucosa moist, no focal neurological deficit, bilateral lower extremity +2 edema, there is blackish discoloration of lower extremities which appears chronic, denuded areas on calfs bilaterally. Right foot is swollen, tender but does not appear red, superficially weeping, I obtained dorsalis pedes and posterior tibial pulses with Doppler which were equal bilaterally, peripheral perfusion and refill normal, temperature of the lower extremities normal. CVS: S1-S2, loud P2 RRR. RS: Clear to auscultate bilaterally. Abdomen: Soft, NT, ND, bowel sounds present. CT chest without IV contrast: 1. Mild cardiomegaly with pulmonary interstitial edema with subtle findings of early alveolar edema, and a trace right-sided effusion. 2. Mild to moderate centrilobular emphysema 3. Fracture of the right seventh rib posteriorly, likely subacute. Heel x-ray right: Soft tissue swelling at the hindfoot. No radiographic findings of osteomyelitis. Assessment and plan 67-year-old male with past medical history of DM, HTN, Hx, possible COPD and noncompliant with all his medication presented in ER for worsening lower extremity swelling, skin discoloration, dyspnea on exertion, cough. On examination he has bilateral lower extremity +2 edema, there is blackish discoloration of lower extremities which appears chronic, denuded areas on calfs bilaterally. Right foot is swollen, tender but does not appear red, superficially weeping, I obtained dorsalis pedes and posterior tibial pulses with Doppler which were equal bilaterally, peripheral perfusion and refill normal, temperature of the lower extremities normal. Even though patient mentions that he noticed blackish discoloration of lower extremities today it appears more chronic. The right foot is more swollen and very tender. X-ray shows soft tissue swelling but we will obtain CT with contrast for further evaluation. Meanwhile patient also has acute exacerbation of heart failure, received IV Lasix in ER with symptomatic improvement. We will resume on his home medications for chronic medical conditions + Acute exacerbation of heart failure with unknown ejection fraction + Denuded skin area bilateral lower extremity + Right foot pain and swelling + Noncompliance + History of DM, HTN, congestive heart failure - Admit to telemetry - Continuous telemetry monitoring - Serial troponin ECGs - 2-D echocardiogram in a.m. - Lasix 40 mg IV twice a day - Start lisinopril 5 by mouth daily - Sliding scale insulin with Accu-Cheks - Cardiology consult - Strict I's and O's - Daily weights - Wound care consult - Check HbA1c - Right foot CT with IV contrast - When necessary nebs - DVT prophylaxis
[2018-02-26 01:08] VITALS: BP 166/80
--- NOTE | 2018-02-26 05:50 | Admission Certification ---
Admission Certification Certification Statement - As attending physician, I certify that at the time of - admission, based on clinical presentation, severity of - symptoms, need for further diagnostic testing and - therapeutic interventions, and risk of adverse outcomes - without in-hospital treatment, in my clinical assessment, - this patient requires an acute hospital stay for a minimum - of two nights or longer. I have also considered psychsocial - factors such as support system, advanced age, financial - issues, cognitive issues, and failed out-patient treatments, - past re-admission history, safety of patient, and lack of - compliance as applicable. Specific rationale supporting this admission is: heart failure exacerbation
[2018-02-26 07:07] VITALS: BP 160/80
--- NOTE | 2018-02-26 07:09 | PN- Housestaff ---
Lawrence GUERRERO,Rhoda 02/26/18 0709: Subjective Follow-up For: Acute exacerbation of heart failure with unknown ejection fraction - Denuded skin area bilateral lower extremity -Right foot pain and swelling - Noncompliance - History of DM, HTN, congestive heart failure Tele-Events Since Last Visit: Normal sinus rhythm, 90, 0.1, 0.2, no overnight events Subjective: Patient was seen and examined at bedside, he continues to complain of lower extremity swelling, was denoted skin on the anterior aspect of both legs, right ankle swelling. He denies any shortness of breath, chest pain, fever or chills. No overnight events, vitals show blood pressure 160/80 Review of Systems Constitutional: Reports: see HPI. Objective Last 24 Hrs of Vital Signs/I&O Vital Signs Date Time Temp Pulse Resp B/P B/P Pulse O2 O2 Flow FiO2 Mean Ox Delivery Rate 02/26 1105 Nasal 2.0L Cannula 02/26 1053 90 150/70 02/26 0918 86 Room Air 02/26 0707 98.8 86 12 160/80 93 Nasal 2.0L Cannula 02/26 0223 82 166/90 02/26 0142 98 Nasal 2.0L Cannula 02/26 0108 98.6 91 16 166/80 94 Nasal 2.0L Cannula 02/26 0009 98.7 102 22 168/99 98 Nasal 2.0L Cannula 02/25 2130 97.4 97 18 173/87 100 Nasal 2.0L Cannula 02/25 1939 94 Nasal 3.0L Cannula 02/25 1753 97.3 92 18 190/87 97 Nasal 3.0L Cannula Intake & Output 02/26 1600 02/26 0800 02/26 0000 Intake Total 440 Output Total 642 577 5791 Balance -525 -460 -1000 Intake, Oral 440 Output, Urine 374 113 4927 Patient 181 lb 225 lb Weight Weight Bed scale Measurement Method Physical Exam General Appearance: Alert, Cooperative, No Acute Distress Neck: Supple, No JVD Cardiovascular: Normal S1, Normal S2 Lungs: Clear to Auscultation Abdomen: Normal Bowel Sounds, Soft, No Hepatospenomegaly Extremities: 2 + pitting edema of both LE, Chronic venous changes bilaterally, denuded raw skin areas 3X3 in both LE, right ankle swelling with a spot of dark discolouration on the right heel Assessment/Plan Assessment: 67-year-old male with PMH of DM, HTN, Hx, possible COPD, medication noncompliance admitted for worsening lower extremity swelling, skin discoloration, dyspnea on exertion, cough. Patient presented with bilateral denoted skin on lower extremity in addition to dark discoloration and swelling which looks like chronic. Pulses are intact bilateral. Swelling of the right ankle was noticed, x-ray showed only soft tissue swelling of the right hindfoot. His symptoms are most likely due to CHF exacerbation due to medication noncompliance. Patient was also noticed to have uncontrolled hypertension with blood pressure in the 160s this morning Problems: -Acute exacerbation of heart failurmost likely due to medication noncompliance - Denuded skin area bilateral lower extremity - Right foot pain and swelling - Noncompliance -Poorly controlled hypertension - History of DM, HTN, congestive heart failure Plan: -Continue to monitor on telemetry - Continuous telemetry monitoring - Serial troponin ECGs were negative which ruled out ACS S -Follow-up on 2-D echocardiogram -Continue Lasix 40 mg IV twice a day -Increase lisinopril to 10 mg daily - Sliding scale insulin with Accu-Cheks -Cardiology recommendation appreciated - Strict I's and O's and daily weights -Dressing change for lower extremity as per wound care - HbA1c is 7.7 - Right foot CT with IV contrast - When necessary nebs -We will confirm his meds with the pharmacy especially psych meds FC CHF diet dvt px levnox Problem List: 1. CHF exacerbation Pain Ratin Pain Location: N/A Pain Goal: Remain pain free Pain Plan: Pathway Tomorrow's Labs & Rationales: CBC BEP Portia Bourne 02/26/18 1341: Attending MD Review Statement Attending Statement Attending MD Statement: examined this patient, discuss w/resident/PA/ASSOCIATE CURATOR, agreed w/resident/PA/ASSOCIATE CURATOR, discussed with family, reviewed EMR data (avail), discussed with nursing, discussed with case mgmt, reviewed images, amended to note Attending Assessment/Plan: Patient seen/examined bedside. Patient with hypoxia on admission requriing iv lasix and oxygen supplementation in ER. ECHO pending, Cardiology consult. Patient likely admitted to telemetry for CHF exacerbation ? new onset or chronic. Continu diuresis for now, mointor I/O, daily weights. GI/dvt prophylaxis full code.
--- NOTE | 2018-02-26 10:10 | Cons- Cardiology ---
General Information and HPI Consulting Request Date of Consult: 02/26/18 Requested By: Portia Bourne MD Reason for Consult: Worsening LE edema; dyspnea; HTN; ? CHF Source of Information: patient Exam Limitations: no limitations History of Present Illness: The patient is a very nice 67-year-old male. His past medical history is remarkable for hypertension, diabetes, etc. Patient was brought to the emergency room by ambulance for evaluation of worsening lower extremity edema. The patient is not a very good historian. He does note that he has had long- standing hypertension but has not been taking medicines. He has noted worsening of his lower extremity edema but it has not interfered with his walking, etc. He denies any other significant symptoms. On closer questioning he has had some exertional dyspnea but this has not interfered with his activities. He denies any chest discomfort, cough, syncope, etc. I was asked see the patient for further evaluation of his cardiac status and assist assistance with his cardiac management, etc. Allergies/Medications Allergies: Coded Allergies: No Known Allergies (01/05/18) Home Med List: Albuterol Sulfate (Ventolin Hfa) 90 MCG HFA.AER.AD 2 PUF INH Q4-6 PRN PRN WHEEZING Labetalol HCl 300 MG TABLET 1 TAB PO BID HIGH BLOOD PRESSURE Levofloxacin (Levaquin) 500 MG TABLET 1 TAB PO DAILY BRONCHITIS, UTI Metformin HCl 500 MG TABLET 1 TAB PO BID DIABETES Mupirocin Calcium (Bactroban Nasal) 2 % OINT...G. 1 GM TOP TID AFFECTED SKIN BACTROBAN OINTMENT.... APPLY TO AFFECTED AREA TID X 10 DAYS Tamsulosin HCl (Flomax) 0.4 MG CAP.ER.24H 1 CAP PO DAILY DIFFICULTY URINATING Current Medications: Current Medications Sig/Wil Start time Last Medication Dose Route Stop Time Status Admin Albuterol Sulfate 3 ML ONCE ONE 02/25 1930 DC 02/25 INH 02/25 Enoxaparin Sodium 40 MG DAILY 02/26 09 02/26 SC 0806 Furosemide 40 MG 7:30 AM, & 4:30 PM 02/26 07 02/26 IV 0806 Furosemide 0 .STK-MED ONE 02/26 2108 DC IV Furosemide 40 MG ONCE ONE 02/25 2045 DC 02/25 IV 02/25 Insulin Aspart 0 TIDAC 02/26 0800 02/26 SC 0816 Ipratropium [place] 2.5 ML ONCE ONE 02/25 1930 DC 02/25 INH 02/25 193 193 Lisinopril 5 MG DAILY 02/26 0230 02/26 PO 0223 Nitroglycerin 0 .STK-MED ONE 02/25 2240 [facility] Nitroglycerin 1 GM ONCE ONE 02/25 2230 DC 02/25 TOP 02/25 2231 2233 Past History Travel History Traveled to [place] past 21 day Yes Medical History Blood Transfusion Hx: No Neurological: NONE EENT: NONE Cardiovascular: hypertension Respiratory: NONE Gastrointestinal: NONE Hepatic: NONE Renal: NONE Musculoskeletal: NONE Psychiatric: NONE Endocrine: diabetes Surgical History Surgical History: non-contributory Psychosocial History Where Do You Live? Home Smoking Status: Current Everyday Smoker Exam & Diagnostic Data Vital Signs and I&O Vital Signs Date Time Temp Pulse Resp B/P B/P Pulse O2 O2 Flow FiO2 Mean Ox Delivery Rate 02/26 0918 86 Room Air 02/26 0707 98.8 86 12 160/80 93 Nasal 2.0L Cannula 02/26 0223 82 166/90 02/26 0142 98 Nasal 2.0L Cannula 02/26 0108 98.6 91 16 166/80 94 Nasal 2.0L Cannula 02/26 0009 98.7 102 22 168/99 98 Nasal 2.0L Cannula 02/25 2130 97.4 97 18 173/87 100 Nasal 2.0L Cannula 02/25 1939 94 Nasal 3.0L Cannula 02/25 1753 97.3 92 18 190/87 97 Nasal 3.0L Cannula Intake & Output 02/26 1600 02/26 0800 02/26 0000 02/25 1600 02/25 0800 02/25 0000 Intake Total 440 Output Total 900 1000 Balance -460 -1000 Intake, Oral 440 Output, Urine 900 1000 Patient 181 lb 225 lb Weight Weight Bed scale Measurement Method Physical Exam: General Appearance: well developed/nourished, thin elderly male, alert, awake, oriented Head: normal HEENT: Normal Neck: supple, JVP normal, carotid upstrokes normal bilaterally, no masses or thyromegaly Respiratory: chest non-tender, clear to auscultation and percussion bilaterally Cardiovascular: regular rate/rhythm, normal S1, S2, 1-2/6 systolic murmur left sternal border Abdomen: normal bowel sounds, soft, non-tender Extremities: normal inspection, both lower extremities in an Randy wraps Vascular: Pulses are 2+ and equal bilaterally Neurologic: Grossly normal/nonfocal Labs/Sandro Results: Laboratory Tests 02/260 2246 2145 Chemistry Troponin I (<0.11 ng/ml) Cancelled 0.02 Toxicology Urine Opiates Screen (>2000 NG/ML) < 100 Methadone Screen (>300 NG/ML) < 40 Barbiturate Screen (>200 NG/ML) < 60 Ur Phencyclidine Scrn (>25 NG/ML) < 6.00 Amphetamines Screen (>1000 NG/ML) < 100 U Benzodiazepines Scrn (>200 NG/ML) < 85 Urine Cocaine Screen (>300 NG/ML) < 50 Urine Cannabis Screen (>50 NG/ML) < 5.00 Urines Urine Color (YEL,AMB,STR) YEL Urine Clarity (CLEAR) CLEAR Urine pH (5.0 - 8.0) 6.5 Ur Specific Mustang (1.001 - 1.035) 1.010 Urine Protein (NEG,<30 MG/DL) 30 H Urine Ketones (NEG) NEG Urine Nitrite (NEG) NEG Urine Bilirubin (NEG) NEG Urine Urobilinogen (0.1 - 1.0 EU/dl) 0.2 Ur Leukocyte Esterase (NEG) NEG Ur Microscopic SEDIMENT EXAMINED Urine RBC (0 - 5 /HPF) RARE Urine WBC (0 - 2 /HPF) RARE Ur Epithelial Cells (NONE,FEW) RARE Urine Bacteria (NEG/NONE) RARE H Urine Hemoglobin (NEG) NEG Urine Glucose (N MG/DL) NEG 02/25 1815 Chemistry Sodium (137 - 145 mmol/L) 138 Potassium (3.5 - 5.1 mmol/L) 4.4 Chloride (98 - 107 mmol/L) 99 Carbon Dioxide (22 - 30 mmol/L) 31 H Anion Gap (5 - 16) 7 BUN (9 - 20 mg/dL) 10 Creatinine (0.7 - 1.2 mg/dL) 0.9 Estimated GFR (>60 ml/min) > 60 BUN/Creatinine Ratio (7 - 25 %) 11.1 Glucose (65 - 99 mg/dL) 113 H Hemoglobin A1c (4.2 - 5.8 %) Pending Lactic Acid (0.7 - 2.1 mmol/L) 1.4 Calcium (8.4 - 10.2 mg/dL) 8.8 Total Bilirubin (0.2 - 1.3 mg/dL) 0.2 AST (17 - 59 U/L) 20 ALT (21 - 72 U/L) 21 Alkaline Phosphatase (< 127 U/L) 137 H Troponin I (<0.11 ng/ml) 0.02 C-Reactive Prot, Quant (<1.0 mg/dL) 1.5 H Nrj-A-Gbdgibqargv Pept (<125 pg/mL) 3730 H Total Protein (6.3 - 8.2 g/dL) 6.8 Albumin (3.5 - 5.0 g/dL) 3.1 L Globulin (1.9 - 4.2 gm/dL) 3.7 Albumin/Globulin Ratio (1.1 - 2.2 %) 0.8 L Coagulation D-Dimer High Sensitivty (0 - 243 ng/ml) 238 Hematology CBC w Diff NO MAN DIFF REQ WBC (4.8 - 10.8 /CUMM) 7.0 RBC (4.70 - 6.10 /CUMM) 5.58 Hgb (14.0 - 18.0 G/DL) 12.6 L Hct (42 - 52 %) 40.6 L MCV (80.0 - 94.0 FL) 72.8 L MCH (27.0 - 31.0 PG) 22.6 L MCHC (33.0 - 37.0 G/DL) 31.0 L RDW (11.5 - 14.5 %) 16.6 H Plt Count (130 - 400 /CUMM) 332 MPV (7.4 - 10.4 FL) 7.3 L Gran % (42.2 - 75.2 %) 66.1 Lymphocytes % (20.5 - 51.1 %) 16.8 L Monocytes % (1.7 - 9.3 %) 8.8 Eosinophils % (0 - 5 %) 7.9 H Basophils % (0.0 - 2.0 %) 0.4 Absolute Granulocytes (1.4 - 6.5 /CUMM) 4.6 Absolute Lymphocytes (1.2 - 3.4 /CUMM) 1.2 Absolute Monocytes (0.10 - 0.60 /CUMM) 0.6 Absolute Eosinophils (0.0 - 0.7 /CUMM) 0.6 Absolute Basophils (0.0 - 0.2 /CUMM) 0 ESR Westergren (0 - 10 MM) 11 H Toxicology Serum Alcohol (<10 MG/DL) < 10.0 Assessment/Plan Assessment/Plan Assessment: 1. Worsening lower extremity edema with some exertional dyspnea; rule out congestive heart failure; rule out hypertensive heart disease 2. History of hypertension 3. Microcytosis 4. Mild hypoalbuminemia 5. Emphysema noted on CT 6. Coronary artery disease with coronary calcification noted on chest CT 7. Left posterior seventh rib fracture Recommendations: -Continue to monitor on telemetry -Echocardiogram pending -Continue diuresis with IV Lasix and close monitoring of intakes, outputs, daily weights, daily labs. -Further plans after echocardiogram available. -Consider increasing lisinopril to 10 mg daily. Consult Acknowledgment - Thank you for your consult request.
[2018-02-26 14:03] VITALS: BP 152/78
--- NOTE | 2018-02-26 17:10 | CT SCAN REPORT ---
EXAMINATION: CT LOWER EXTREMITY WITH CONTRAST, RIGHT CLINICAL INFORMATION: Right foot soft tissue swelling. Tenderness. Warmth. COMPARISON: Radiographs from the same date TECHNIQUE: Multidetector volumetric imaging was obtained through the right ankle and foot following the intravenous administration of 95 mL Optiray 320. Multiplanar reformatted images in coronal and sagittal orientations were submitted. DLP: 328.5 mGy-cm FINDINGS: No acute fracture or malalignment. There is mild osteoarthritis of the talocrural joint with small marginal osteophytes. A small osseous fragment in the deep posterior fibers of the deltoid ligament likely correspond to an old ligamentous injury. Mild osteoarthritis also present at the talonavicular joint. No erosions are identified. No focal osteolysis or osseous lesions. Enthesopathic spurring is present at the Achilles tendon insertion and plantar fascial origin on the calcaneus. There is diffuse soft tissue swelling and subcutaneous edema at the ankle and foot. Skin thickening is present at the ankle. No discrete fluid collections are identified. No subcutaneous gas. Arteries are patent. Prominent subcutaneous veins are noted and suggest relative hyperemia of the ankle and foot. There is mild fatty replacement of the musculature in the ankle and foot without complete atrophy. IMPRESSION: 1. Soft tissue swelling, subcutaneous edema, and skin thickening in the ankle and foot, as can be seen with cellulitis. No abscesses are identified. No evidence of underlying osteomyelitis by CT. MRI would be more specific. 2. 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
--- NOTE | 2018-02-26 19:07 | ECHOCARDIOGRAM REPORT ---
LYLY RUBY Age: 67 : 1950 Gender: M Exam Date: 02/26/2018 10:11 Exam Location: 1 [address] Ht (in): 71 Wt (lb): 181 BSA: 2.04 BP: 160 / 80 Ordering Physician: Anatoliy Heath MD Referring Physician: Anatoliy Heath MD Technologist: Adiel Fisher [facility] Room Number: 180-1 Indications: LIGHTHEADEDNESS Rhythm: Sinus Technical Quality: Fair FINDINGS Left Ventricle Mild left ventricular dilatation. Left ventricular wall thickness increased. Borderline normal left ventricular ejection fraction estimated at 50-55%. Right Ventricle Right ventricle at upper limits of normal. Right Atrium Mild right atrial dilatation. Left Atrium Moderate left atrial dilatation. Mitral Valve Mitral valve thickened. [id number] mitral regurgitation. Aortic Valve Trileaflet aortic valve. Diffuse thickening (sclerosis) of the aortic valve cusps without reduced excursion. Mild aortic regurgitation. No aortic stenosis. Tricuspid Valve Tricuspid valve not well visualized, grossly normal. Trace to mild tricuspid regurgitation. Right ventricular systolic pressure estimated at 44 mmHg. Pulmonic Valve Pulmonic valve not well visualized, grossly normal. Trace to mild pulmonic regurgitation. Pericardium No pericardial effusion. Great Vessels Normal size aortic root and proximal ascending aorta. CONCLUSIONS 1. Aortic sclerosis is prsent with mild aortic insufficiency. 2. Mitral leaflet thickening is present with mild to moderate mitral insufficiency and moderate left atrial enlargement 3. There is no pericardial fluid present. 4. The left ventricular chamber is mildly dilated with mild eccentric hypertrophy and an ejection fraction of 50-55%. MIld diastolic dysfunction is present. 5. Minimal to mild tricuspid and pulmonic insufficiency are present with mild pulmonary hypertension. Mild dilatation of the IVC is also noted. Otis Phillips M.D. (Electronically Signed) Final Date: 26 February 2018 19:07 MEASUREMENTS (Male / Female) Normal Values 2D ECHO LV Diastolic Diameter PLAX 5.9 cm 4.2 - 5.9 / 3.9 - 5.3 cm LV Systolic Diameter PLAX 4.4 cm 2.1 - 4.0 cm LV Fractional Shortening PLAX 25.4 % 25 - 46 % LV Ejection Fraction 2D Teich 49.4 % IVS Diastolic Thickness 1.1 cm LVPW Diastolic Thickness 1.1 cm LV Relative Wall Thickness 0.4 RV Internal Dim ED PLAX 3.5 cm 1.9 - 3.8 cm LVOT Diameter 2.0 cm Aortic Root Diameter 3.1 cm LA Systolic Diameter LX 4.4 cm 3.0 - 4.0 / 2.7 - 3.8 cm LV Ejection Fraction MOD BP 52.0 % >= 55 % LV Diastolic Length 4C 7.8 cm 6.9 - 10.3 cm LV Diastolic Area 4C 35.8 cm LV Diastolic Volume MOD 4C 134.0 cm LV Ejection Fraction MOD 4C 52.2 % LV Stroke Volume MOD 4C 70.0 cm LV Systolic Length 4C 6.5 cm LV Systolic Area 4C 22.7 cm LV Systolic Volume MOD 4C 64.0 cm LV Ejection Fraction MOD 2C 51.4 % LV Diastolic Volume 4C AL 140.0 cm 85 - 139 / 69 - 109 cm LV Systolic Volume 4C AL 67.0 cm LV Ejection Fraction 4C AL 52.2 % LV Stroke Volume 4C AL 73.1 cm LV Ejection Fraction 2C AL 51.7 % LA Volume 80.0 cm 18 - 58 / 22 - 52 cm Ascending Aorta Diameter 3.7 cm DOPPLER AV Peak Velocity 138.0 cm/s AV Peak Gradient 7.6 mmHg AV Mean Velocity 97.9 cm/s AV Mean Gradient 4.0 mmHg AV Velocity Time Integral 27.9 cm LVOT Peak Velocity 97.8 cm/s LVOT Peak Gradient 3.8 mmHg LVOT Mean Velocity 62.0 cm/s LVOT Mean Gradient 2.0 mmHg LVOT Velocity Time Integral 21.3 cm LVOT Stroke Volume 66.9 cm AV Area Cont Eq vti 2.4 cm AV Area Cont Eq pk 2.2 cm MV Peak Velocity 119.0 cm/s MV Peak Gradient 5.7 mmHg MV Mean Velocity 76.8 cm/s MV Mean Gradient 3.0 mmHg Mitral E Point Velocity 125.0 cm/s Mitral A Point Velocity 73.5 cm/s Mitral E to A Ratio 1.7 MV PHT Velocity 124.0 cm/s MV Deceleration Miller 465.0 cm/s MV Pressure Half Time 80.0 ms MV Area PHT 2.8 cm MV Deceleration Time 151.0 ms MR Peak Velocity 481.0 cm/s MR Peak Gradient 92.5 mmHg MR ERO PISA 0.2 cm MR Regurgitant Volume PISA 31.9 cm TR Peak Velocity 312.0 cm/s TR Peak Gradient 38.9 mmHg Right Atrial Pressure 10.0 mmHg Pulmonary Artery Systolic Pressu 48.9 mmHg Right Ventricular Systolic Press 48.9 mmHg PV Peak Velocity 101.0 cm/s PV Peak Gradient 4.1 mmHg PV Mean Velocity 71.3 cm/s PV Mean Gradient 2.0 mmHg PV Velocity Time Integral 22.3 cm LV E' Lateral Velocity 9.7 cm/s Mitral E to LV E' Lateral Ratio 13.0 LV E' Septal Velocity 6.1 cm/s Mitral E to LV E' Septal Ratio 20.4
[2018-02-26 21:29] VITALS: BP 110/68
[2018-02-26 21:31] VITALS: BP 152/76
[2018-02-27 06:21] VITALS: BP 144/86
--- NOTE | 2018-02-27 07:08 | PN- Housestaff ---
Lawrence GUERRERO,Rhoda 02/27/18 0707: Subjective Follow-up For: Acute exacerbation of heart failure with unknown ejection fraction - Denuded skin area bilateral lower extremity -Right foot pain and swelling - Noncompliance - History of DM, HTN, congestive heart failure Tele-Events Since Last Visit: Normal sinus rhythm, 83, 0.1, 0.2, no overnight events Subjective: Patient was seen and examined at bedside, he complains of itching of both lower extremity, denies any shortness of breath, chest pain, palpitation, fever or chills Review of Systems Constitutional: Reports: see HPI. Objective Last 24 Hrs of Vital Signs/I&O Vital Signs Date Time Temp Pulse Resp B/P B/P Pulse O2 O2 Flow FiO2 Mean Ox Delivery Rate 02/27 0952 92 Room Air 02/27 0900 76 148/70 95 Nasal 2.0L Cannula 02/27 0621 98.4 74 20 144/86 95 Nasal Cannula 02/26 2153 Nasal 2.0L Cannula 02/26 2131 98.1 82 20 152/76 93 Nasal Cannula 02/26 2129 98.1 67 18 110/68 97 Room Air 02/26 1600 95 Nasal 2.0L Cannula 02/26 1403 98.1 83 18 152/78 97 Nasal 2.0L Cannula Intake & Output 02/27 1600 02/27 0800 02/27 0000 Intake Total 360 120 Output Total 370 044 7017 Balance -500 -390 -1305 Intake, Oral 360 120 Number 1 Bowel Movements Output, Urine 456 985 1123 Patient 172 lb Weight Weight Bed scale Measurement Method Physical Exam General Appearance: Alert, Oriented X3, Cooperative, No Acute Distress HEENT: Atraumatic, PERRLA, EOMI, Mucous Membr. moist/pink Neck: Supple, No JVD Cardiovascular: Normal S1, Normal S2, No Murmurs Lungs: Clear to Auscultation Abdomen: Normal Bowel Sounds, Soft, No Tenderness Extremities: BOTH COVERED WITH JOAO WRAP Assessment/Plan Assessment: 67-year-old male with PMH of DM, HTN, Hx, possible COPD, medication noncompliance admitted for worsening lower extremity swelling, skin discoloration, dyspnea on exertion, cough. Patient presented with bilateral denoted skin on lower extremity in addition to dark discoloration and swelling which looks like chronic. Pulses are intact bilateral. Swelling of the right ankle was noticed, x-ray showed only soft tissue swelling of the right hindfoot. His symptoms are most likely due to CHF exacerbation due to medication noncompliance. Patient was also noticed to have uncontrolled hypertension with blood pressure in the 160s this morning Problems: -Acute exacerbation of heart failurmost likely due to medication noncompliance - Denuded skin area bilateral lower extremity - Right foot pain and swelling - Noncompliance -Poorly controlled hypertension - History of DM, HTN, congestive heart failure Plan: -Continue to monitor on telemetry - Continuous telemetry monitoring - Serial troponin ECGs were negative which ruled out ACS S - echocardiogram showed normal ejection fraction -Continue Lasix 40 mg IV twice a day, will consider switching to p.o. after discussion with cardiology -Continue lisinopril to 10 mg daily - Sliding scale insulin with Accu-Cheks -Cardiology recommendation appreciated - Strict I's and O's and daily weights -Dressing change for lower extremity as per wound care - HbA1c is 7.7 - Right foot CT with IV contrast shows soft tissue swelling with no evidence of bone disease in addition to mild osteoarthritis - When necessary nebs If he remains to be stable most likely will be discharged in the a.m. with home health services FC CHF diet dvt px levnox Problem List: 1. Acute electrocardiogram changes Pain Ratin Pain Location: N/A Pain Goal: Remain pain free Pain Plan: PATHWAY Tomorrow's Labs & Rationales: Portia Aguirre 02/27/18 1121: Attending MD Review Statement Attending Statement Attending MD Statement: examined this patient, discuss w/resident/PA/ROLLER, agreed w/resident/PA/ROLLER, discussed with family, reviewed EMR data (avail), discussed with nursing, discussed with case mgmt, reviewed images, amended to note Attending Assessment/Plan: Patient seen/examined bedside. Patient with hypoxia on admission requriing iv lasix and oxygen supplementation in ER. Feels better, vitals stable. labs pending today ECHO with EF 50-55% with diastolic dysfucntion, Cardiology consulted. Continue telemetry for CHF exacerbation likely acute on chronic diastolic heart failure exacebration Continue iv diuresis for now, mointor I/O, daily weights. Routine wound care at lower extrmeities. GI/dvt prophylaxis full code.
[2018-02-27 09:00] VITALS: BP 148/70
[2018-02-27 14:18] VITALS: BP 148/78
--- NOTE | 2018-02-27 16:13 | PN- Cardiology ---
Subjective Subjective: clinically about the same. No new complaints. Objective Vital Signs and I&Os Vital Signs Date Time Temp Pulse Resp B/P B/P Pulse O2 O2 Flow FiO2 Mean Ox Delivery Rate 02/27 1418 97.9 78 18 148/78 92 Room Air 02/27 0952 92 Room Air 02/27 0900 76 148/70 95 Nasal 2.0L Cannula 02/27 0621 98.4 74 20 144/86 95 Nasal Cannula 02/26 2153 Nasal 2.0L Cannula 02/26 2131 98.1 82 20 152/76 93 Nasal Cannula 02/26 2129 98.1 67 18 110/68 97 Room Air Intake & Output 02/27 1600 02/27 0800 02/27 0000 02/26 1600 02/26 0800 02/26 0000 Intake Total 1030 360 120 830 440 Output Total 2300 750 1425 4761 521 5505 Balance -1270 -390 -1305 -545 -460 -1000 Intake, IV 30 30 Intake, Oral 1000 360 120 800 440 Number 1 Bowel Movements Output, Urine 2300 750 1425 [phone] Patient 172 lb 181 lb 225 lb Weight Weight Bed scale Bed scale Measurement Method Current Medications: Current Medications Sig/Wil Start time Last Medication Dose Route Stop Time Status Admin Atorvastatin Calcium 40 MG 1700 02/27 1700 AC PO Enoxaparin Sodium 40 MG DAILY 02/26 0900 02/27 NV 0900 Furosemide 40 MG 7:30 AM, & 4:30 PM 02/26 0730 AC 02/27 IV 0900 Insulin Aspart 0 TIDAC 02/26 0800 02/27 SC 1155 Lisinopril 10 MG DAILY 02/27 0900 AC 02/27 PO 0901 Results Last 48 Hrs of Labs/Mics: Laboratory Tests 02/27/18 0925: Anion Gap 10, Estimated GFR > 60, BUN/Creatinine Ratio 12.5 02/26/18 0030: Troponin I Cancelled 02/25/18 2246: Troponin I 0.02 02/25/18 2145: Urine Opiates Screen < 100, Methadone Screen < 40, Barbiturate Screen < 60, Ur Phencyclidine Scrn < 6.00, Amphetamines Screen < 100, U Benzodiazepines Scrn < 85, Urine Cocaine Screen < 50, Urine Cannabis Screen < 5.00, Urine Color YEL, Urine Clarity CLEAR, Urine pH 6.5, Ur Specific [place] 1.010, Urine Protein 30 H, Urine Ketones NEG, Urine Nitrite NEG, Urine Bilirubin NEG, Urine Urobilinogen 0.2, Ur Leukocyte Esterase NEG, Ur Microscopic SEDIMENT EXAMINED, Urine RBC RARE , Urine WBC RARE, Ur Epithelial Cells RARE, Urine Bacteria RARE H, Urine Hemoglobin NEG, Urine Glucose NEG 02/25/181921: D-Dimer High Sensitivty 238 02/25/18 1815: Anion Gap 7, Estimated GFR > 60, BUN/Creatinine Ratio 11.1, Glucose 113 H, Hemoglobin A1c 7.7 H, Lactic Acid 1.4, Calcium 8.8, Total Bilirubin 0.2, AST 20 , ALT 21, Alkaline Phosphatase 137 H, Troponin I 0.02, C-Reactive Prot, Quant 1.5 H, Fai-Y-Bnlwmefjwjh Pept 3730 H, Total Protein 6.8, Albumin 3.1 L, Globulin 3.7, Albumin/Globulin Ratio 0.8 L, CBC w Diff NO MAN DIFF REQ, RBC 5.58, MCV 72.8 L, MCH 22.6 L, MCHC 31.0 L, RDW 16.6 H, MPV 7.3 L, Gran % 66.1, Lymphocytes % 16.8 L, Monocytes % 8.8, Eosinophils % 7.9 H, Basophils % 0.4, Absolute Granulocytes 4.6, Absolute Lymphocytes 1.2, Absolute Monocytes 0.6 , Absolute Eosinophils 0.6, Absolute Basophils 0, ESR Westergren 11 H, Serum Alcohol < 10.0 Assessment/Plan Assessment/Plan Assessment: 1. Worsening lower extremity edema with some exertional dyspnea; rule out congestive heart failure; rule out hypertensive heart disease 2. History of hypertension 3. Microcytosis 4. Mild hypoalbuminemia 5. Emphysema noted on CT 6. Coronary artery disease with coronary calcification noted on chest CT 7. Left posterior seventh rib fracture Recommendations: -Continue current medications for now. -Continue diuresis with IV Lasix. -Continue to monitor intakes, outputs, and daily weights. -Follow-up labs in the morning. -Reassess tomorrow. Continue telemetry? Yes
[2018-02-27 21:52] VITALS: BP 156/78
--- NOTE | 2018-02-27 22:23 | RADIOLOGY REPORT ---
EXAMINATION: XR PORTABLE CHEST CLINICAL INFORMATION: 7 bilateral cough with water COMPARISON: None TECHNIQUE: Portable frontal view of the chest was obtained. FINDINGS: The lungs are well-expanded with increased vascular markings throughout both lungs with mild cardiomegaly suggestive of vascular congestion. No consolidation or effusion seen. No gross bony abnormality. IMPRESSION: Mild cardiomegaly with pulmonary vascular congestion suspected. No consolidation seen
[2018-02-28 06:00] VITALS: BP 146/78
--- NOTE | 2018-02-28 07:14 | PN- Housestaff ---
Lawrence GUERRERO,Rhoda 02/28/18 0714: Subjective Follow-up For: Acute exacerbation of heart failure with unknown ejection fraction - Denuded skin area bilateral lower extremity -Right foot pain and swelling - Noncompliance - History of DM, HTN, congestive heart failure Tele-Events Since Last Visit: Normal sinus rhythm, 83, 0.1, 0.2, no overnight events Subjective: Patient was seen and examined at bedside, this morning he was n.p.o. because he had an incidence of choking last night when he was eating his dinner, chest x- ray only showed cardiomegaly without any patchy lesions in the lung indicators of aspiration. Patient was able to eat his breakfast normal without any issues this morning. He was weaned off oxygen and was able to maintain good saturation. Review of Systems Constitutional: Reports: see HPI. Objective Last 24 Hrs of Vital Signs/I&O Vital Signs Date Time Temp Pulse Resp B/P B/P Pulse O2 O2 Flow FiO2 Mean Ox Delivery Rate 02/28 0751 74 146/78 02/28 0600 98.8 74 18 146/78 94 02/28 0000 95 Nasal 1.0L Cannula 02/27 2152 98.2 81 18 156/78 92 Nasal Cannula 02/27 1600 Room Air 02/27 1418 97.9 78 18 148/78 92 Room Air Intake & Output 02/28 1600 02/28 0800 02/28 0000 Intake Total 100 300 Output Total 325 1600 Balance -225 -1300 Intake, Oral 100 300 Output, Urine 325 1600 Patient 173 lb Weight Weight Bed scale Measurement Method Physical Exam General Appearance: Alert, Oriented X3, Cooperative, No Acute Distress Neck: Supple, No JVD Cardiovascular: Normal S1, Normal S2 Lungs: Clear to Auscultation Abdomen: Normal Bowel Sounds, Soft, No Tenderness Extremities: No Clubbing, No Cyanosis, both in Randy wrap Assessment/Plan Assessment: 67-year-old male with PMH of DM, HTN, Hx, possible COPD, medication noncompliance admitted for worsening lower extremity swelling, skin discoloration, dyspnea on exertion, cough. Patient presented with bilateral denoted skin on lower extremity in addition to dark discoloration and swelling which looks like chronic. Pulses are intact bilateral. Swelling of the right ankle was noticed, x-ray showed only soft tissue swelling of the right hindfoot. His symptoms are most likely due to CHF exacerbation due to medication noncompliance. Patient was also noticed to have uncontrolled hypertension with blood pressure in the 160s this morning Problems: -Acute exacerbation of heart failure with preserved ejection fraction most likely due to medication noncompliance - Denuded skin area bilateral lower extremity - Right foot pain and swelling - Noncompliance -Poorly controlled hypertension - History of DM, HTN, congestive heart failure Plan: -Continue to monitor on telemetry - Continuous telemetry monitoring - Serial troponin ECGs were negative which ruled out ACS S - echocardiogram showed normal ejection fraction -DC IV Lasix Start Lasix 40 mg PO twice a day, -Continue lisinopril to 10 mg daily - Sliding scale insulin with Accu-Cheks -Cardiology recommendation appreciated - Strict I's and O's and daily weights -Dressing change for lower extremity as per wound care - HbA1c is 7.7 - Right foot CT with IV contrast shows soft tissue swelling with no evidence of bone disease in addition to mild osteoarthritis - When necessary nebs If he remains to be stable most likely will be discharged in the a.m. with home health services Patient is a stable to be discharged home today to follow-up as an outpatient with generalist FC CHF diet dvt px levnox Problem List: 1. CHF exacerbation Pain Ratin Pain Location: N/A Pain Goal: Remain pain free Pain Plan: PATHWAY Tomorrow's Labs & Rationales: N/A Portia Bourne 02/28/18 1212: Attending MD Review Statement Attending Statement Attending MD Statement: examined this patient, discuss w/resident/PA/FIRER WATERTENDER, agreed w/resident/PA/FIRER WATERTENDER, discussed with family, reviewed EMR data (avail), discussed with nursing, discussed with case mgmt, reviewed images, amended to note Attending Assessment/Plan: Brendanet seen/examined bedside. No new complaints. Off OXYGEN. Medically stable for discharge to home on PO lasix. Follow up O/p PCP in 3-[address] Phillips in few weeks of discharge
[2018-02-28 07:51] VITALS: BP 146/78
[2018-02-28] MEDS ORDERED: LISINOPRIL10 M1 PO (10:02)
[2018-02-28] MEDS ORDERED: LASIX40 M1 PO (10:02)
[2018-02-28] MEDS ORDERED: Lipitor PO (10:02)
[2018-02-28] MEDS ORDERED: ASPIRIN81 M4 PO (10:02)
--- NOTE | 2018-02-28 10:04 | Patient Discharge Instructions ---
Discharge Instructions General Discharge Information You were seen/treated for: LEG SWELLING Special Instructions: -Please follow-up with your primary care physician today -Please follow-up with [facility] machine operator Dr. Phillips within 1 week after discharge -Please take your medication as prescribed Diet Recommended Diet: Heart Healthy Acute Coronary Syndrome Inclusion Criteria At DC or during hospital stay patient has or had the following: ACS DIAGNOSIS No Discharge Core Measures Meds if any: Prescribed or Continued at Discharge Meds if any: NOT Prescribed or Continued at Discharge Congestive Heart Failure Inclusion Criteria At DC or during hospital stay patient has or had the following: CHF DIAGNOSIS No Discharge Core Measures Meds if any: Prescribed or Continued at Discharge Meds if any: NOT Prescribed or Continued at Discharge Cerebrovascular accident Inclusion Criteria At DC or during hospital stay patient has or had the following: CVA/TIA Diagnosis No Discharge Core Measures Meds if any: Prescribed or Continued at Discharge Meds if any: NOT Prescribed or Continued at Discharge Venous thromboembolism Inclusion Criteria VTE Diagnosis No VTE Type NONE VTE Confirmed by (Test) NONE Discharge Core Measures - Per Current guidelines, there needs to be overlap - treatment for the first 5 days of Warfarin therapy. - If discharged on Warfarin prior to 5 days of - overlap therapy, the patient will need to be - assessed for post discharge needs including - *Post discharge parental anticoagulation - *Warfarin and/or parental anticoagulation education - *Follow up date to check INR post discharge At least 5 days overlap therapy as Inpatient No Meds if any: Prescribed or Continued at Discharge Note: Overlap Therapy is Warfarin and Anticoagulant Meds if any: NOT Prescribed or Continued at Discharge
[2018-02-28] MEDS ORDERED: ATORVASTATIN CA40 M1 PO (10:08)
--- NOTE | 2018-02-28 11:08 | Discharge Summary ---
Visit Information Visit Dates Admission Date: 02/25/18 Discharge Date: 02/28/18 Hospital Course Course Attending Physician: Portia Bourne MD Primary Care Physician: DR. VILLATORO Hospital Course: 67 Y M with PMH of HTN, DM was BIBA to ED for evaluation of bilateral LE swelling. Patient is poor historian, he had no other contact info, no close friend, no family member except his old mother in facility in [place], he also was homeless for 9 months before moving to [place] in December 2017. Patient noted that for the last several months as he had increased swelling of bilateral lower extremity, but he couldn't remember any specific day. This morning he noticed his R LE was more swollen and turned to black (after which he called EMS and was transferred to ED), which was associated with increased sharp pain over the foot area. He also noted fluid discharge from bilateral LE skin lesions. His baseline is independent, he is able to walk occasionally with assistance of a johnston, lives in an apartment currently. He reported smoking a daily basis but tonight drinking alcohol or other recreational drugs. VS, Ph Ex at admission: No fever, BP 190/87, saturating in 2L NC, RR and OH insignificant EKG: NSR, St elevation in v2, v3, v4, T invert v1 and V1 Labs at admission: WBC 7, WBC 12.6, MCV 72, RDW 16.6 bicarb 31, AG 7, others insignificant, Glu 113, CRP 1.5, proBNP 3730, U tox negative Urinalysis, insignificant Imagings at admission: chest xray: Background prominence of the interstitium with peribronchial thickening. The findings are nonspecific but could reflect small airways disease. Heel xray: Soft tissue swelling at the hindfoot. No radiographic findings of osteomyelitis. Chest CT: 1. Mild cardiomegaly with pulmonary interstitial edema with subtle findings of early alveolar edema, and a trace right-sided effusion. 2. Mild to moderate centrilobular emphysema 3. Fracture of the right seventh rib posteriorly, likely subacute. Echocardiogram: CONCLUSIONS 1. Aortic sclerosis is prsent with mild aortic insufficiency. 2. Mitral leaflet thickening is present with mild to moderate mitral insufficiency and moderate left atrial enlargement 3. There is no pericardial fluid present. 4. The left ventricular chamber is mildly dilated with mild eccentric hypertrophy and an ejection fraction of 50-55%. MIld diastolic dysfunction is present. 5. Minimal to mild tricuspid and pulmonic insufficiency are present with mild pulmonary hypertension. Mild dilatation of the IVC is also noted. Patient was admitted to telemetry floor for management of following conditions: -Acute exacerbation of heart failur with preserved ejection fraction , history of hypertension: Most likely was due to medication noncompliance. Patient was monitored on telemetry, close monitoring of his I's and O's and daily weights. Serial tropes and EKG were negative which ruled out ACS, echocardiogram showed normal ejection fraction, he was treated with Lasix 40 mg IV twice daily, blood pressure was a stable, subsequently his Lasix was changed to 40 p.o. twice daily. Lisinopril 10 mg was continued. Cardiology on board with - Denuded skin area bilateral lower extremity: On admission the patient had bilateral denoted skin on the posterior aspect of his LEGS, wound care consult recommended dressing changes and Randy wrapping, there was no signs of active infection in his wounds. - Right foot pain and swelling: Lower extremity CT showed soft tissue swelling and osteoarthritis of the joints of the ankle without signs of bone infection. - History of DM: Hemoglobin A1c was 7.7 Patient was monitored with fingerstick glucose and was treated with insulin sliding scale. On discharge patient was restarted on metformin. Patient did not have primary care doctor, he was given referral to [place] faculty physician and veterinary nurse Dr. Phillips to follow-up Full code Consistent carbohydrate Allergies: Coded Allergies: No Known Allergies (01/05/18) Disposition Summary Disposition Principal Diagnosis: CHF exacerbation Additional Diagnosis: Hypertension, diabetes mellitus Discharge Disposition: home or self care Discharge Instructions General Discharge Information Code Status: Full Code Patient's Diet: heart healthy Patient's Activity: As tolerated Follow-Up Instructions/Appts: -Please follow-up with your primary care physician today -Please follow-up with veterinary nurse Dr. Phillips within 1 week after discharge -Please take your medication as prescribed Medications at Discharge Discharge Medications: Stop taking the following medications: Levofloxacin (Levaquin) 500 MG TABLET ORAL DAILY Qty = 14 Labetalol HCl (Labetalol HCl) 300 MG TABLET ORAL TWICE DAILY Qty = 60 Mupirocin Calcium (Bactroban Nasal) 2 % OINT...G. On the skin THREE TIMES DAILY Qty = 10 Continue taking these medications: Albuterol Sulfate (Ventolin Hfa) 90 MCG HFA.AER.AD 2 Puff Inhale through mouth EVERY 4-6 HOURS NEEDED as needed for WHEEZING Qty = 1 Comments: NOT GIVEN IN HOSPITAL Tamsulosin HCl (Flomax) 0.4 MG CAP.ER.24H 1 Capsule ORAL DAILY Qty = 20 Comments: NOT GIVEN IN HOSPITAL Metformin HCl (Metformin HCl) 500 MG TABLET 1 Tablet ORAL TWICE DAILY Qty = 60 Comments: NOT GIVEN IN HOSPITAL Start taking the following new medications: Lisinopril (Lisinopril) 10 MG TABLET 10 Milligram ORAL DAILY Qty = 90 No Refills Comments: Last Taken:02/28/18 Time:800 AM Aspirin (Aspirin*) 81 MG TAB.CHEW 81 Milligram ORAL DAILY Qty = 90 No Refills Comments: Last Taken:02/28/18 Time:1054 AM Furosemide (Lasix) 40 MG TABLET 40 Milligram ORAL 7:30AM & 4:30PM Qty = 90 No Refills Comments: Last Taken:02/28/18 Time:800 AM Atorvastatin Calcium (Atorvastatin Calcium) 40 MG TABLET 1 Tablet ORAL DAILY Qty = 30 No Refills Comments: Last Taken:02/27/18 Time:430 PM Copies To: Irving GUERRERO,Irving Attending MD Review Statement Documenting Attending: Portia Bourne MD Other Findings: Patient seen/examined bedside. Patient with hypoxia on admission requriing iv lasix and oxygen supplementation in ER. ECHO with EF 50-55% with diastolic dysfucntion, Cardiology consulted. Continue telemetry for CHF exacerbation likely acute on chronic diastolic heart failure exacebration transtion to PO diuresis at dsicharge. Follow up O/p PCP referral to Dr Villatoro provided in 3-[address] Phillips in few weeks of discharge
--- NOTE | 2018-02-28 13:23 | PN- Cardiology ---
Subjective Subjective: Patient seems to be doing much better. Discharge pending today. Objective Vital Signs and I&Os Vital Signs Date Time Temp Pulse Resp B/P B/P Pulse O2 O2 Flow FiO2 Mean Ox Delivery Rate 02/28 0751 74 146/78 02/28 0600 98.8 74 18 146/78 94 02/28 0000 95 Nasal 1.0L Cannula 02/27 2152 98.2 81 18 156/78 92 Nasal Cannula 02/27 1600 Room Air 02/27 1418 97.9 78 18 148/78 92 Room Air Intake & Output 02/28 1600 02/28 0800 02/28 0000 02/27 1600 02/27 0800 02/27 0000 Intake Total 058 595 5986 360 120 Output Total 325 1600 2300 750 1425 Balance -225 -1300 -1270 -390 -1305 Intake, IV 30 Intake, Oral 377 564 5363 360 120 Number 1 Bowel Movements Output, Urine 325 1600 2300 750 1425 Patient 173 lb 172 lb Weight Weight Bed scale Bed scale Measurement Method Current Medications: Current Medications Sig/Wil Start time Last Medication Dose Route Stop Time Status Admin Aspirin 81 MG DAILY 02/28 0900 CAN PO Aspirin 81 MG DAILY 02/28 0900 AC 02/28 PO 1054 Atorvastatin Calcium 40 MG 1700 02/27 1700 AC 02/27 PO 1622 Diphenhydramine HCl 12.5 MG ONCE ONE 02/28 2345 AC IV 02/28 2346 Enoxaparin Sodium 40 MG DAILY 02/26 0900 AC 02/28 SC 0751 Furosemide 40 MG 7:30 AM, & 4:30 PM 02/28 1630 AC PO Furosemide 40 MG 7:30 AM, & 4:30 PM 02/26 0730 DC 02/28 IV 0751 Insulin Aspart 0 TIDAC 02/26 0800 AC 02/28 SC 1318 Lisinopril 10 MG DAILY 02/27 0900 AC 02/28 PO 0751 Results Last 48 Hrs of Labs/Mics: Laboratory Tests 02/28/18 0625: Anion Gap 7, Estimated GFR > 60, BUN/Creatinine Ratio 15.0, Triglycerides 109, Cholesterol 177, LDL Cholesterol, Calc 93, HDL Cholesterol 63 H, Cholesterol/ HDL Ratio 3 02/27/18 0925: Anion Gap 10, Estimated GFR > 60, BUN/Creatinine Ratio 12.5 Assessment/Plan Assessment/Plan Assessment: 1. Worsening lower extremity edema with some exertional dyspnea; rule out congestive heart failure; rule out hypertensive heart disease 2. History of hypertension 3. Microcytosis 4. Mild hypoalbuminemia 5. Emphysema noted on CT 6. Coronary artery disease with coronary calcification noted on chest CT 7. Left posterior seventh rib fracture Recommendations: -Out of bed as tolerated -Echocardiogram results noted -Transition to all p.o. medication -Discharge planning -The patient has my office phone number. If he desires, I will gladly follow him as outpatient. Continue telemetry? Yes
== END 2018-02-28 14:16 | disposition home health service (06) | DRG 292 ==
LOC: ERH 17:48 → ERHI 22:38 → 1NO 22:38 → ENRESERV 23:36 → 1NO 02-26 01:00 → ENPENDDIS 02-28 11:48 → ENTRNSPT 02-28 13:41 → EDTRNSPT 02-28 13:59 → EDTRNSPTSTS 02-28 13:59 → CMPTRNSPT 02-28 14:05 → 1NO 02-28 14:16
PROVIDERS: Physician Assistant Medical; Student in an Organized Health Care Education/Training Program
DX: I11.0 Hypertensive heart disease with heart failure (principal); L97.819 Non-pressure chronic ulcer of other part of right lower leg with unspecified severity; S22.32XA Fracture of one rib, left side, initial encounter for closed fracture; I50.33 Acute on chronic diastolic (congestive) heart failure; E11.622 Type 2 diabetes mellitus with other skin ulcer; E88.09 Other disorders of plasma-protein metabolism, not elsewhere classified; J44.9 Chronic obstructive pulmonary disease, unspecified; I25.10 Atherosclerotic heart disease of native coronary artery without angina pectoris; X58.XXXA Exposure to other specified factors, initial encounter; R09.02 Hypoxemia; Z79.84 Long term (current) use of oral hypoglycemic drugs; Z91.14 Patient's other noncompliance with medication regimen
CPT/HCPCS: 1NSP; ERO; 36592; 71045; 73650-RT; 80307; 81001; 82436; 87040; 93005; 93010; 93306; G0480; J1200; J1650; J1940; J3490

== ENCOUNTER 2018-03-11 13:42 | Emergency (ER) | payer OTHER ==
[~2018-03-11 13:42] MED LIST changes: +ASPIRIN81 M4 PO; +ATORVASTATIN CA40 M1 PO; +LASIX40 M1 PO; +LISINOPRIL10 M1 PO; +Lipitor PO
--- NOTE | 2018-03-11 14:37 | ED GENERAL ADULT ---
History of Present Illness General Chief Complaint: General Adult Stated Complaint: BIBA ? LEG INFECTION, URINARY BURNING/FREQUNCY Source: patient Exam Limitations: poor historian Vital Signs & Intake/Output Vital Signs & Intake/Output Vital Signs Date Time Temp Pulse Resp B/P B/P Pulse O2 O2 Flow FiO2 Mean Ox Delivery Rate 03/11 1356 Room Air 03/11 1354 98.0 80 18 166/80 98 Allergies Coded Allergies: No Known Allergies (01/05/18) Reconcile Medications Albuterol Sulfate (Ventolin Hfa) 90 MCG HFA.AER.AD 2 PUF INH Q4-6 PRN PRN WHEEZING Aspirin (Aspirin*) 81 MG TAB.CHEW 81 MG PO DAILY HEART HEALTH Atorvastatin Calcium 40 MG TABLET 1 TAB PO DAILY HIGH CHOLESTROL Ciprofloxacin HCl (Cipro) 500 MG TABLET 1 TAB PO BID UTI Furosemide (Lasix) 40 MG TABLET 40 MG PO 7:30 AM, & 4:30 PM WATER RETENTION Lisinopril 10 MG TABLET 10 MG PO DAILY HIGH BLOOD PRESSURE Metformin HCl 500 MG TABLET 1 TAB PO BID DIABETES Tamsulosin HCl (Flomax) 0.4 MG CAP.ER.24H 1 CAP PO DAILY DIFFICULTY URINATING Triage Note: 67 YEAR OLD MALE BIBLay FROM HOME WITH URINARY FREQUENCY AND BURNING X 4 DAYS. HX DIABETES. PATIENT HAD APPOINTMENT AT [facility] AT 1330 TODAY, BUT CAME TO ED INSTEAD. RIGHT LOWER LEG IS WRAPPED IN [place]. PATIENT DENIES ANY PAIN, BUT STATES, "IT FEELS LIKE SOMETHING IS CRAWLING IN THERE AND IT'S ITCHY, BUT I CAN'T SCRATCH IT." ED INSTEAD. [facility] Triage Nurses Notes Reviewed? yes Onset: Abrupt Duration: day(s): Timing: recent history Injury Environment: home No Modifying Factors: none HPI: 67-year-old male comes into the emergency room for multiple complaints. Patient reports that he is here for a dressing change to his right lower leg. He is a chronic wound on his leg. He is also here because been having some increased frequency and burning with urination. History of urinary infections. He also complains of some pain to his left shoulder region. He denies any chest pain shortness of breath jaw pain. The shoulder pain is worse with certain movements. He denies any recent falls or traumas. (Jarred HOYOS,[place]) Past History Travel History Traveled to [place] past 21 day No Medical History Any Pertinent Medical History? see below for history Neurological: NONE EENT: NONE Cardiovascular: hypertension Respiratory: NONE Gastrointestinal: NONE Hepatic: NONE Renal: NONE Musculoskeletal: NONE Psychiatric: NONE Endocrine: diabetes History of MRSA: No History of VRE: No History of CDIFF: No Surgical History Surgical History: non-contributory Psychosocial History Who do you live with Patient/Self What is your primary language Kiswahili Tobacco Use: Current Daily Use Daily Tobacco Use Amount/Type: => 5 Cigarettes daily Family History Hx Contributory? No (Chester Castellanos) Review of Systems Review of Systems Constitutional: Reports: no symptoms. EENTM: Reports: no symptoms. Respiratory: Reports: no symptoms. Cardiovascular: Reports: no symptoms. GI: Reports: no symptoms. Genitourinary: Reports: see HPI. Musculoskeletal: Reports: see HPI. Skin: Reports: see HPI. Neurological/Psychological: Reports: no symptoms. Hematologic/Endocrine: Reports: no symptoms. Immunologic/Allergic: Reports: no symptoms. All Other Systems: Reviewed and Negative (Chester Castellanos) Physical Exam Physical Exam General Appearance: no apparent distress, alert, awake Head: atraumatic, normal appearance Eyes: Bilateral: normal appearance. Ears, Nose, Throat: normal ENT inspection, hearing grossly normal Neck: normal inspection Respiratory: normal breath sounds, no respiratory distress Extremities: Open wound right posterior calf, no erythema, no purulent discharge , no edema, approximately 3 cm in diameter, Neurologic/Psych: awake, alert Skin: intact Core Measures ACS in differential dx? No CVA/TIA Diagnosis: No Sepsis Present: No Sepsis Focused Exam Completed? No (Chester Castellanos) Progress Differential Diagnoses I considered the following diagnoses in my evaluation of the patient: UTI, GC, muscle strain, prostatitis, SHOULDER FX Plan of Care: Orders Procedure Date/time Status Add-on Test (ER Only) 03/11 1521 Active CULTURE,URINE 03/11 1436 Active URINALYSIS 03/11 1434 Complete Laboratory Tests 03/11/18 1436: Urinalysis LIGHT H, Urine Color YEL, Urine Clarity HAZY H, Urine pH 7.0, Ur Specific Rea 1.010, Urine Protein 30 H, Urine Ketones NEG, Urine Nitrite NEG, Urine Bilirubin NEG, Urine Urobilinogen 0.2, Ur Leukocyte Esterase LARGE H , Ur Microscopic SEDIMENT EXAMINED, Urine RBC RARE, Urine WBC > 75 H, Ur Epithelial Cells FEW, Urine Bacteria FEW H, Urine Hemoglobin TRACE-INTACT H, Urine Glucose NEG Microbiology 03/11 1436 URINE ROUT: Urine Culture - RECD Diagnostic Imaging: Viewed by Me: Radiology Read. Discussed w/RAD: Radiology Read. Radiology Impression: PATIENT: LYLY RUBY PRESENT AGE: 67 PATIENT ACCOUNT NO: [id number] : 49 LOCATION: [facility] ORDERING PHYSICIAN: Chester HOYOS SERVICE DATE: 03/11/18 EXAM TYPE: RAD - XRY-SHOULDER COMPLETE-LEFT EXAMINATION: XR SHOULDER, LEFT CLINICAL INFORMATION: Left shoulder pain COMPARISON: None TECHNIQUE: AP external rotation, Grashey, scapular Y, and axillary views of the left shoulder. FINDINGS: No fracture or dislocation. The glenohumeral joint is appropriately aligned. Small marginal osteophytes are present. Mild hypertrophic degenerative changes at the left acromioclavicular joint. The visualized lung is clear. IMPRESSION: No acute osseous abnormality. Mild degenerative changes at the left shoulder. DICTATED BY : Jose Angel Moon MD DATE/TIME DICTATED:03/11/181512 PRESIDENT [employer]: YOGESH DATE/TIME TRANSCRIBED:03/11/181512 CONFIDENTIAL, DO NOT COPY WITHOUT APPROPRIATE AUTHORIZATION. <Electronically signed in Other Vendor System> SIGNED BY: Jose Angel Moon MD 03/11/181516 Initial ED EKG: none (Jarred HOYOS,[place]) Departure Departure Disposition: HOME OR SELF CARE Condition: Stable Clinical Impression Primary Impression: UTI (urinary tract infection) Secondary Impressions: Chronic wound of extremity, Shoulder strain Referrals: Patient Has No Primary Care Dr (PCP/Family) Additional Instructions: Take ciprofloxacin as prescribed. Rest. Drink plenty of fluids. Return if any concerns worsening symptoms. Please go over all results of today's visit with your primary care doctor. Contact your primary care doctor to let them know you were here in the emergency room. There may be nonspecific findings which may not be related to your visit today here in the emergency room but may require further evaluation and chronic monitoring by your primary care doctor. If you had a laceration today the chance of foreign body always remains. You should follow-up with your primary care doctor for recheck in 3-5 days for a wound check. If you had an x-ray done there is a chance that a fracture could have been missed on initial read and you should follow-up with your primary care doctor for repeat x-rays if symptoms persist. If your blood pressure was elevated here in the emergency room please have rechecked by hyour primary care doctor within the next 48. If you were prescribed a narcotic here in the emergency room or any type of controlled substances you're not allowed to drive while taking this medication or operate any type of heavy machinery. Narcotics can make you feel lightheaded dizziness nausea and can cause constipation. You may need to pick up and delivery driver a stool softener. Thank you for choosing [facility] emergency room. Please return to the emergency room immediately if you have any other concerns worsening of symptoms. Departure Forms: Customer Survey General Discharge Information Prescriptions: Current Visit Scripts Ciprofloxacin HCl (Cipro) 1 TAB PO BID #14 TAB Comments 03/11/2018 3:43:29 PM Patient wound is chronic appearing and does not appear to be infected. Dressing change was performed and patient was told to follow-up with wound care center like he has previously. Patient's left shoulder pain is reproducible and worse with range of motion and consistent with more muscular pain. He has no complaints of chest pain or shortness of breath. No suspicion for acute coronary syndrome. He is not sexually active. She reports increased frequency and burning with urination and has symptoms consistent with urinary tract infection. Patient started on ciprofloxacin for UTI. Follow-up with PCP. Return if any other concerns worsening symptoms. He understands and agrees with plan of care.case discussee with dr anderson. (Chester Castellanos) PA/DIRECTOR OF TAX SERVICES Co-Sign Statement Statement: ED Attending supervision documentation- [X] I saw and evaluated the patient. I have also reviewed all the pertinent lab results and diagnostic results. I agree with the findings and the plan of care as documented in the PA's/DIRECTOR OF TAX SERVICES's documentation. Patient presents for evaluation of her chronic leg wound and urinary tract signs and symptoms. Physical examination reveals a comfortable and conversant gentleman with a stable gait. [] I have reviewed the ED Record and agree with the PA's/DIRECTOR OF TAX SERVICES's documentation. [] Additions or exceptions (if any) to the PAs/DIRECTOR OF TAX SERVICES's note and plan are summarized below: [] (Maranda GUERRERO,Corby D.) Critical Care Note Critical Care Note Critical Care Time: non-applicable (Jarred HOYOS,[place])
--- NOTE | 2018-03-11 15:17 | RADIOLOGY REPORT ---
EXAMINATION: XR SHOULDER, LEFT CLINICAL INFORMATION: Left shoulder pain COMPARISON: None TECHNIQUE: AP external rotation, Grashey, scapular Y, and axillary views of the left shoulder. FINDINGS: No fracture or dislocation. The glenohumeral joint is appropriately aligned. Small marginal osteophytes are present. Mild hypertrophic degenerative changes at the left acromioclavicular joint. The visualized lung is clear. IMPRESSION: No acute osseous abnormality. Mild degenerative changes at the left shoulder.
[2018-03-11] MEDS ORDERED: CIPRO500 M1 PO (15:20)
[2018-03-11 16:00] VITALS: BP 156/86
== END 2018-03-11 16:02 ==
LOC: ERH 13:42
DX: S46.912A Strain of unspecified muscle, fascia and tendon at shoulder and upper arm level, left arm, initial encounter (principal); S81.801A Unspecified open wound, right lower leg, initial encounter; N39.0 Urinary tract infection, site not specified; X58.XXXA Exposure to other specified factors, initial encounter; Y92.009 Unspecified place in unspecified non-institutional (private) residence as the place of occurrence of the external cause; Y93.9 Activity, unspecified
CPT/HCPCS: 73030-LT; 81001; 87086; 87147

== ENCOUNTER 2018-03-22 19:36 | Emergency (ER) | payer OTHER ==
[~2018-03-22] VITALS: Ht 1 cm; Wt 79.4 kg
[~2018-03-22 19:36] MED LIST changes: +CIPRO500 M1 PO
--- NOTE | 2018-03-22 20:07 | ED ANIMAL BITE/WOUND CHECK ---
History of Present Illness General Chief Complaint: Lower Extremity Problems Stated Complaint: RIGHT LEG PROBLEM Source: patient Exam Limitations: no limitations Vital Signs & Intake/Output Vital Signs & Intake/Output Vital Signs Date Time Temp Pulse Resp B/P B/P Pulse O2 O2 Flow FiO2 Mean Ox Delivery Rate 03/22 2012 158/78 03/22 1940 97.3 91 18 184/93 95 Room Air Allergies Coded Allergies: No Known Allergies (01/05/18) Reconcile Medications Albuterol Sulfate (Ventolin Hfa) 90 MCG HFA.AER.AD 2 PUF INH Q4-6 PRN PRN WHEEZING Aspirin (Aspirin*) 81 MG TAB.CHEW 81 MG PO DAILY HEART HEALTH Atorvastatin Calcium 40 MG TABLET 1 TAB PO DAILY HIGH CHOLESTROL Ciprofloxacin HCl (Cipro) 500 MG TABLET 1 TAB PO BID UTI Furosemide (Lasix) 40 MG TABLET 40 MG PO 7:30 AM, & 4:30 PM WATER RETENTION Lisinopril 10 MG TABLET 10 MG PO DAILY HIGH BLOOD PRESSURE Metformin HCl 500 MG TABLET 1 TAB PO BID DIABETES Tamsulosin HCl (Flomax) 0.4 MG CAP.ER.24H 1 CAP PO DAILY DIFFICULTY URINATING Triage Note: PT FROM HOME C/O "I WANT THE BANDAGE OFF OF MY WOUND" PTS WOUND TO RLE WAS WRAPPED BY THE ER 1 WEEK PRIOR. PT STATES "I THINK ITS HEALED SO I WANT IT OFF" NO OTHER COMPAINTS. BP SLIGHTLY ELEVATED 184/93 Triage Nurses Notes Reviewed? yes HPI: Patient is a 67-year-old male who is coming in today complaining of a wound on his right leg. Patient states he believe it is healed and would like his dressing removed. The dressing was applied in this emergency department 1 week ago. Patient has not removed the dressing since then. He was also seen prior to this for this same wound. Denies any pain in the area. No fevers or chills. No systemic symptoms of infection. He has yet to follow-up with the wound care center. He has no primary doctor. (Jair Gilbert PA-C) Past History Travel History Traveled to [place] past 21 day No Medical History Any Pertinent Medical History? see below for history Neurological: NONE EENT: NONE Cardiovascular: hypertension Respiratory: NONE Gastrointestinal: NONE Hepatic: NONE Renal: NONE Musculoskeletal: NONE Psychiatric: NONE Endocrine: diabetes History of MRSA: No History of VRE: No History of CDIFF: No Surgical History Surgical History: non-contributory Psychosocial History Who do you live with Patient/Self What is your primary language Indonesian Tobacco Use: Current Daily Use Daily Tobacco Use Amount/Type: => 5 Cigarettes daily Family History Hx Contributory? No (Jair Gilbert PA-C) Review of Systems Review of Systems Constitutional: Reports: no symptoms. EENTM: Reports: no symptoms. Respiratory: Reports: no symptoms. Cardiovascular: Reports: no symptoms. GI: Reports: no symptoms. Genitourinary: Reports: no symptoms. Musculoskeletal: Reports: no symptoms. Skin: Reports: see HPI. Neurological/Psychological: Reports: no symptoms. All Other Systems: Reviewed and Negative (Jair Gilbert PA-C) Physical Exam Physical Exam General Appearance: well developed/nourished, no apparent distress Head: atraumatic Eyes: Bilateral: PERRL, EOMI. Ears, Nose, Throat: normal pharynx, normal ENT inspection, hearing grossly normal Neck: normal inspection, supple Respiratory: normal breath sounds Cardiovascular: regular rate/rhythm Extremities: normal range of motion Neurologic/Psych: awake, alert, oriented x 3, normal mood/affect Skin: Chronic ulcer on posterior right lower extremity. No evidence of cellulitis, superficial. (Jair Gilbert PA-C) Progress Differential Diagnosis: abscess, cellulitis, chronic ulcer Plan of Care: Patient was requesting dressing be removed. I did remove the bandage. There is no evidence of cellulitis. There is a 1 cm round ulcer on the back of his right lower extremity. There is no fluctuance or induration. No evidence of abscess. Likely due to chronic venous insufficiency. I did apply a new bandage, bacitracin/Band-Aid. Encourage patient to change bandage daily. Patient does not have a primary care physician so I will refer him to [facility] as he needs blood pressure management. We will also give him referral to the wound care center. I did discuss the importance of following up with them as wound is unlikely to get better if he does not care for it. He is in agreement with plan of care. He will return immediately with any new worsening symptoms. (Jair Gilbert PA-C) Departure Departure Time of Disposition: 2004 Disposition: HOME OR SELF CARE Condition: Stable Clinical Impression Primary Impression: Visit for wound check Referrals: [facility] Additional Instructions: Change bandage daily. You should visit the wound care center this week as discussed. [facility] to establish primary care. Return to emergency department if you develop any new or worsening symptoms including fever, worsening redness or pain in the area, etc. Departure Forms: Customer Survey General Discharge Information (Vladimir ALVAREZ,Jair) PA/FLAG MAKER Co-Sign Statement Statement: ED Attending supervision documentation- [] I saw and evaluated the patient. I have also reviewed all the pertinent lab results and diagnostic results. I agree with the findings and the plan of care as documented in the PA's/FLAG MAKER's documentation. [X] I have reviewed the ED Record and agree with the PA's/FLAG MAKER's documentation. [] Additions or exceptions (if any) to the PAs/FLAG MAKER's note and plan are summarized below: [] (Jacobo GUERRERO,Johnson Jones)
[2018-03-22 20:12] VITALS: BP 158/78
[2018-04-04] MEDS ORDERED: VIBRAMYCIN100 MG PO (19:15)
== END 2018-03-22 20:13 ==
LOC: ERH 19:36
DX: Z48.01 Encounter for change or removal of surgical wound dressing (principal)

== ENCOUNTER 2018-05-31 02:30 | Emergency (ER) | payer OTHER ==
[~2018-05-31] VITALS: Ht 182.9 cm; Wt 81.6 kg
[~2018-05-31 02:30] MED LIST changes: +BACLOFEN10 M1 PO; +IBUPROFEN600 M1 PO; +KEFLEX500 M1 PO; +VIBRAMYCIN100 MG PO
--- NOTE | 2018-05-31 02:51 | ED THROAT/DENTAL COMPLAINT ---
History of Present Illness General Chief Complaint: General Adult Stated Complaint: MOUTH SORE, TOOTH ACHE Source: patient Exam Limitations: no limitations Vital Signs & Intake/Output Vital Signs & Intake/Output Vital Signs Date Time Temp Pulse Resp B/P B/P Pulse O2 O2 Flow FiO2 Mean Ox Delivery Rate 05/31 0236 98.8 98 16 185/100 95 Room Air Allergies Coded Allergies: No Known Allergies (01/05/18) Reconcile Medications Albuterol Sulfate (Ventolin Hfa) 90 MCG HFA.AER.AD 2 PUF INH Q4-6 PRN PRN WHEEZING Amoxicillin/Potassium Clav (Augmentin 875-125 Tablet) 875 MG-125 MG TABLET 1 TAB PO BID dental infection Aspirin (Aspirin*) 81 MG TAB.CHEW 81 MG PO DAILY HEART HEALTH Atorvastatin Calcium 40 MG TABLET 1 TAB PO DAILY HIGH CHOLESTROL Baclofen 10 MG TABLET 1 TAB PO TID PRN muscle strain Cephalexin (Keflex) 500 MG CAPSULE 1 CAP PO BID URINE INFECTION . Doxycycline Hyclate (Vibramycin) 100 MG CAPSULE 1 CAP PO BID STASIS DEMATITIS Furosemide (Lasix) 40 MG TABLET 40 MG PO 7:30 AM, & 4:30 PM WATER RETENTION Ibuprofen 600 MG TABLET 1 TAB PO Q6P PRN pain with food Lisinopril 10 MG TABLET 10 MG PO DAILY HIGH BLOOD PRESSURE Metformin HCl 500 MG TABLET 1 TAB PO BID DIABETES Oxycodone HCl/Acetaminophen (Percocet 5-325 MG Tablet) 5 MG-325 MG TABLET 1 TAB PO TID PRN pain six... [id number] Tamsulosin HCl (Flomax) 0.4 MG CAP.ER.24H 1 CAP PO DAILY DIFFICULTY URINATING Triage Note: PT BIBA FROM HOME. PT CALLED EMS FOR TOOTHEACHE. EMS STATES PT SAW BUGS ON THEIR STRETCHER THAT WERE NOT THERE. PT HAS PEROXIDE MOUTHWASH BOTTLE WITH HIM AND STATES "THE WENDY ACROSS THE STREET PUT SOMETHING IN THIS. YOU NEED TO TEST IT. HE AND I ARE GOING TO FIGHT". PT VERY ANXIOUS WITH SCATTERED THOUGHTS. BP ELEVATED Triage Nurses Notes Reviewed? yes Onset: Gradual Duration: week(s):, waxing and waning Timing: recent history Injury Environment: home Severity: moderate Modifying Factors: Improves With: rest. Associated Symptoms: dental infection HPI: 67 yo gentleman, h/o diabetes and poor dentition presents with several weeks of dental pain. He notes that he has tried hydrogen peroxide rinse without success. He is otherwise well, is able to eat, and is without fever, chills, dyspnea, chest pain. He is otherwise well. Past History Travel History Traveled to [place] past 21 day No Medical History Any Pertinent Medical History? see below for history Neurological: NONE EENT: NONE Cardiovascular: hypertension Respiratory: NONE Gastrointestinal: NONE Hepatic: NONE Renal: NONE Musculoskeletal: NONE Psychiatric: NONE Endocrine: diabetes Blood Disorders: NONE Cancer(s): NONE NET SOFTWARE DEVELOPER/Reproductive: NONE History of MRSA: No History of VRE: No History of CDIFF: No Surgical History Surgical History: non-contributory Psychosocial History Who do you live with Patient/Self What is your primary language Azeri Tobacco Use: Current Daily Use Daily Tobacco Use Amount/Type: => 5 Cigarettes daily ETOH Use: occasional use Illicit Drug Use: denies illicit drug use Family History Hx Contributory? No Review of Systems Review of Systems Constitutional: Reports: no symptoms. EENTM: Reports: no symptoms. Respiratory: Reports: no symptoms. Cardiovascular: Reports: no symptoms. GI: Reports: no symptoms. Genitourinary: Reports: no symptoms. Musculoskeletal: Reports: no symptoms. Skin: Reports: no symptoms. Neurological/Psychological: Reports: no symptoms. Hematologic/Endocrine: Reports: no symptoms. Immunologic/Allergic: Reports: no symptoms. All Other Systems: Reviewed and Negative Physical Exam Physical Exam General Appearance: well developed/nourished, no apparent distress Head: atraumatic, normal appearance Eyes: Bilateral: normal appearance. Ears: Bilateral: canal normal. Nose: normal inspection Mouth/Throat: poor dentition, several missing teeth, inflamed gums and tenderness to palpation in the area of the lower left frontal incisors. Neck: normal inspection, supple, full range of motion Cardiovascular/Respiratory: no respiratory distress Back: normal inspection Neurologic/Psych: awake, alert, oriented x 3 Skin: intact, normal color, warm/dry Core Measures ACS in differential dx? No Sepsis Present: No Sepsis Focused Exam Completed? No Progress Differential Diagnosis: odontogenic abscess, stomatitis/gingivitis Plan of Care: Current Medications Sig/Wil Start time Last Medication Dose Stop Time Status Admin Acetaminophen 975 MG ONCE ONE 05/31 300 UNVr (Tylenol) 05/31 301 Amoxicillin/ 1,000 MG ONCE ONE 05/31 300 UNVr Clavulanate Potassium 05/31 301 (Augmentin) Departure Departure Disposition: HOME OR SELF CARE Condition: Stable Clinical Impression Primary Impression: Dental infection Referrals: Patient Has No Primary Care Dr (PCP/Family) Departure Forms: Customer Survey General Discharge Information Prescriptions: Current Visit Scripts Amoxicillin/Potassium Clav (Augmentin 875-125 Tablet) 1 TAB PO BID #20 TAB Oxycodone HCl/Acetaminophen (Percocet 5-325 MG Tablet) 1 TAB PO TID PRN pain #6 TAB six... [id number] Comments poor dentition with evidence of infection... wrote rx for abx... pt referred to dentist.
[2018-05-31] MEDS ORDERED: AUGMENTIN 875-1 EACH PO (02:52)
[2018-05-31] MEDS ORDERED: PERCOCET 5-3251 EACH PO (02:52)
[2018-05-31 03:03] VITALS: BP 168/84
== END 2018-05-31 03:04 ==
LOC: ERH 02:30
DX: K04.7 Periapical abscess without sinus (principal); I10 Essential (primary) hypertension; E11.9 Type 2 diabetes mellitus without complications; Z79.82 Long term (current) use of aspirin; Z79.84 Long term (current) use of oral hypoglycemic drugs
CPT/HCPCS: J3490

== ENCOUNTER 2018-06-03 18:42 | Inpatient (IN) | payer OTHER ==
[~2018-06-03] VITALS: Ht 182.9 cm; Wt 78.2 kg
[~2018-06-03 18:42] MED LIST changes: +AUGMENTIN 875-1 EACH PO; +PERCOCET 5-3251 EACH PO
--- NOTE | 2018-06-03 18:52 | ED NEURO DEFICIT/STROKE ---
See Addendum History of Present Illness General Chief Complaint: Neuro Symptoms/ Deficit Stated Complaint: ?STROKE ALERT Source: patient Exam Limitations: poor historian Vital Signs & Intake/Output Vital Signs & Intake/Output Vital Signs Date Time Temp Pulse Resp B/P B/P Pulse O2 O2 Flow FiO2 Mean Ox Delivery Rate 06/03 2220 78 18 175/88 96 Nasal 2.0L Cannula 06/03 2105 92 20 168/84 96 Nasal 2.0L Cannula 06/03 2057 Nasal 2.0L Cannula 06/03 2000 98.0 92 20 164/82 95 Nasal 2.0L Cannula 06/03 1918 97.0 84 20 176/91 96 Nasal 2.0L Cannula 06/03 1905 97.0 92 20 184/91 96 Room Air ED Intake and Output 06/04 0000 06/03 1200 Intake Total 0 Output Total 0 Balance 0 Intake, Oral 0 Output, Urine 0 Allergies Coded Allergies: No Known Allergies (01/05/18) Reconcile Medications Albuterol Sulfate (Ventolin Hfa) 90 MCG HFA.AER.AD 2 PUF INH Q4-6 PRN PRN WHEEZING Amoxicillin/Potassium Clav (Augmentin 875-125 Tablet) 875 MG-125 MG TABLET 1 TAB PO BID dental infection Aspirin (Aspirin*) 81 MG TAB.CHEW 81 MG PO DAILY HEART HEALTH Atorvastatin Calcium 40 MG TABLET 1 TAB PO DAILY HIGH CHOLESTROL Baclofen 10 MG TABLET 1 TAB PO TID PRN muscle strain Cephalexin (Keflex) 500 MG CAPSULE 1 CAP PO BID URINE INFECTION . Doxycycline Hyclate (Vibramycin) 100 MG CAPSULE 1 CAP PO BID STASIS DEMATITIS Furosemide (Lasix) 40 MG TABLET 40 MG PO 7:30 AM, & 4:30 PM WATER RETENTION Ibuprofen 600 MG TABLET 1 TAB PO Q6P PRN pain with food Lisinopril 10 MG TABLET 10 MG PO DAILY HIGH BLOOD PRESSURE Metformin HCl 500 MG TABLET 1 TAB PO BID DIABETES Oxycodone HCl/Acetaminophen (Percocet 5-325 MG Tablet) 5 MG-325 MG TABLET 1 TAB PO TID PRN pain six... [id number] Tamsulosin HCl (Flomax) 0.4 MG CAP.ER.24H 1 CAP PO DAILY DIFFICULTY URINATING Triage Nurses Notes Reviewed? yes HPI: Patient presents for evaluation of stroke symptoms that began about 20 minutes prior to arrival. According to EMS the patient described difficulty swallowing while eating dinner. They noted he had a slight left pronator drift/hand grasp weakness but did not note a facial droop. Patient denies weakness but states that his speech is slurred. 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 The patient admits that his memory is somewhat poor regarding today's events. Past History Travel History Traveled to [place] past 21 day No Medical History Any Pertinent Medical History? see below for history Neurological: NONE EENT: NONE Cardiovascular: hypertension Respiratory: NONE Gastrointestinal: NONE Hepatic: NONE Renal: NONE Musculoskeletal: NONE Psychiatric: NONE Endocrine: diabetes Blood Disorders: NONE Cancer(s): NONE SHIPPING AND RECEIVING SPECIALIST/Reproductive: NONE History of MRSA: No History of VRE: No History of CDIFF: No Surgical History Surgical History: non-contributory Psychosocial History Who do you live with Patient/Self What is your primary language Filipino Family History Hx Contributory? No Review of Systems Review of Systems Constitutional: Reports: no symptoms. EENTM: Reports: no symptoms. Respiratory: Reports: no symptoms. Cardiovascular: Reports: no symptoms. GI: Reports: no symptoms. Genitourinary: Reports: no symptoms. Musculoskeletal: Reports: no symptoms. Skin: Reports: no symptoms. Neurological/Psychological: Reports: see HPI. Hematologic/Endocrine: Reports: no symptoms. Immunologic/Allergic: Reports: no symptoms. All Other Systems: Reviewed and Negative Physical Exam Physical Exam General Appearance: SEE BELOW Cranial Nerves: SEE BELOW Comments: Gen.: Well-nourished, well-developed, no acute respiratory distress. Head: Normocephalic, atraumatic. Eyes: Left eye strabismus, PERRLA Ears: Normal inspection bilaterally Nose: Normal inspection Throat/mouth : Moist mucosa, poor dentition with multiple missing teeth Neck: Supple, full range of motion, no goiter, no carotid bruits, equal carotid pulses Heart: Regular rate and rhythm Lungs: Clear to auscultation bilaterally with normal air entry Chest: Nontender Back: Normal range of motion Abdomen: Nondistended, normal bowel sounds Extremities: equal radial pulses, no cyanosis clubbing or edema, equal hand grasp, no pronator drift, no dysmetria Neurologic: Cranial nerves 2 through 12 intact, speech is clear and without apparent aphasia, gait is stable Skin: warm and dry Psychiatric: Calm, cooperative, no apparent delusions or hallucinations Core Measures CVA/TIA Diagnosis: Yes NIH Stroke Scale NIH Stroke Scale Response Value Level of Consciousness alert 0 LOC Questions answers both correctly 0 LOC Commands obeys both correctly 0 Best Gaze normal 0 Visual Ivy no visual loss 0 Facial Paresis normal 0 Motor Arm - Left drift 1 Motor Arm - Right no drift 0 Motor Leg - Left no drift 0 Motor Leg - Right no drift 0 Limb Ataxia no ataxia 0 Sensory normal 0 Best Language no aphasia 0 Dysarthria mild/mod slurring words 1 Extinction and Inattention no neglect 0 Total 2 tPA Risk/Benefit discussion I have discussed the risks, benefits, and alternatives of Alteplase treatment including: - If given promptly, can resolve or have major improvement in stroke symptoms. - Bleeding (hemorrhage) is the most common risk that can occur. - Bleeding may occur into the brain and cause~long-term serious disability~ including - this is rare, affecting about 1% of patients. - Alternative treatments with proven benefit for patients with stroke include aspirin and care in a specialized unit where staff members pay careful attention to a variety of basic aspects of care. tPA given? No Swallow Evaluation Pass Swallow eval date 06/04/18 Swallow eval time 2220 Sepsis Present: No Sepsis Focused Exam Completed? No Progress Differential Diagnosis: electrolyte imbalance, hypoglycemia, intracranial mass/ tumor, stroke, vertebrobasilar insuff. Plan of Care: Orders Procedure Date/time Status Consistent Carbohydrate 1 06/04 B Active Patient Data 06/03 2342 Active Misc Message 06/03 2333 Active ED Holding Orders 06/03 2333 Active Admit to inpatient 06/03 2333 Active Vital Signs 06/03 2333 Active Code Status 06/03 2333 Active Intake & Output 06/03 191 Active Telemetry/Biology Specimen Technician 06/03 185 Active PARTIAL THROMBOPLASTIN TIME 06/03 185 Complete PROTHROMBIN TIME 06/03 185 Complete COMPREHENSIVE METABOLIC PANEL 06/03 185 Complete CBC WITHOUT DIFFERENTIAL 06/03 1851 Complete EKG 06/03 1851 Active Laboratory Tests 06/03/18 1909: Anion Gap 9, Estimated GFR > 60, BUN/Creatinine Ratio 7.8, Glucose 247 H, Calcium 8.6, Total Bilirubin 0.2, AST 23, ALT 20 L, Alkaline Phosphatase 132 H , Total Protein 6.5, Albumin 3.4 L, Globulin 3.1, Albumin/Globulin Ratio 1.1, PT 10.8, INR 0.99, APTT 32, CBC w Diff NO MAN DIFF REQ, RBC 5.12, MCV 74.7 L, MCH 23.8 L, MCHC 31.9 L, RDW 17.6 H, MPV 7.1 L, Gran % 50.7, Lymphocytes % 24.7, Monocytes % 12.0 H, Eosinophils % 11.9 H, Basophils % 0.7, Absolute Granulocytes 2.3, Absolute Lymphocytes 1.1 L, Absolute Monocytes 0.5, Absolute Eosinophils 0.5, Absolute Basophils 0 Diagnostic Imaging: Discussed w/RAD: CT Scan. Radiology Impression: PATIENT: LYLY RUBY PRESENT AGE: 67 PATIENT ACCOUNT NO: [id number] : 49 LOCATION: [facility] ORDERING PHYSICIAN: Corby Low MD SERVICE DATE: 06/03/18 EXAM TYPE: CAT - CT HEAD ANGIOGRAM; CT NECK ANGIOGRAM EXAMINATION: CT ANGIOGRAM NECK WITH CONTRAST CT ANGIOGRAM BRAIN WITH CONTRAST CLINICAL INFORMATION: Left-sided weakness. Dysphagia. COMPARISON: Head CT performed just earlier. TECHNIQUE: Test bolus sequences followed by intravenous administration 95 mL of Optiray 320. Helical imaging was performed in the axial plane from the thoracic inlet to the skull vertex. Delayed postcontrast imaging of the head was also performed. The data was processed at the cardiopulmonary technologist chief workstation for generation of MIP sequences. Angled MIPs and volume rendered reformatted images were also generated at an offline 3D workstation. Stenoses are assessed in accordance with NASCET criteria unless otherwise indicated. DLP: 2022 mGy-cm FINDINGS: Postcontrast head CT: There is no intracranial hemorrhage, extra-axial collection, mass, or CT evidence of large territory infarction. No abnormal enhancement is seen. The dural venous sinuses demonstrate normal enhancement. The ventricles are normal in size and configuration without evidence of hydrocephalus. There is mild patchy hypoattenuation in the bilateral periventricular white matter likely reflecting small vessel ischemic changes. The visualized paranasal sinuses and mastoid air cells are clear. Neck CTA: There is a three-vessel, left-sided aortic arch. There is no significant stenosis of the great vessel origins. Minimal atheromatous changes are present at the bilateral carotid bifurcations without significant stenosis of the internal carotid arteries. The right vertebral artery appears distended with thrombus just distal to its origin but reconstitutes in the low V2 segment at the C6-C7 level and is patent in the remainder of the neck. The nondominant left vertebral artery appears patent in the neck. Head CTA: The right vertebral artery is patent and is the predominant supply of the basilar artery which is also patent. The nondominant left vertebral artery demonstrates decreased caliber just distal to the PICA takeoff. The PICA is patent throughout its visualized course. The distal intradural left vertebral artery is diminutive with segmental nonopacification which may reflect occlusion or slow flow. The posterior cerebral arteries are patent. The intracranial internal carotid arteries demonstrate atheromatous calcifications at the siphons without significant stenosis. The ACAs are patent. The MCAs are patent with symmetric collaterals. Non-vascular findings: Emphysematous changes are present in the upper lungs. There is diffuse interlobular septal thickening with scattered interstitial changes. No dense consolidation or mass is seen. There is prominent lymphoid tissue in the upper mediastinum without discrete measurable adenopathy and appears similar compared with 02/25/2018. Incidentally noted is right-sided vocal fold paresis. Multilevel degenerative changes are noted in the cervical spine. There is scattered ossification of the posterior longitudinal ligament. Severe facet degenerative change is seen at multiple levels. IMPRESSION: CT head : - No intracranial hemorrhage or large acute infarction. - Given reported symptomatology and findings described below a posterior fossa infarct is suspected but not well-defined at this time. Further evaluation with brain MRI is suggested. CTA neck: - Occlusion of the right vertebral artery just distal to its origin with reconstitution in the low V2 segment. The more distal right vertebral artery is patent. - Both internal carotid arteries are patent. CTA head: - No proximal large vessel occlusion. - Distal intradural left vertebral artery is diminutive which may reflect slow flow or possible occlusion. The intradural right vertebral artery and basilar arteries are widely patent. No posterior cerebral artery abnormality identified. Additional findings: - Severe emphysematous changes in the upper lungs. - Severe facet arthropathy in the cervical spine. - Right-sided vocal fold paresis. This critical result was discussed with Corby Low on 06/03/2018 8:14 PM, and it was ascertained that the content and urgency of the report was understood at the time of direct communication. DICTATED BY: Everardo Solis MD DATE/TIME DICTATED:06/03/181947 COAL CUTTER:YOGESH DATE/TIME TRANSCRIBED:06/03/181947 CONFIDENTIAL, DO NOT COPY WITHOUT APPROPRIATE AUTHORIZATION. <Electronically signed in Other Vendor System> SIGNED BY: Everardo Solis MD 06/03/182023 Initial ED EKG: NSR, LBBB Prior EKG: unchanged Comments: 06/03/2018 7:01:31 PM per [facility], CAT scan is negative. 06/03/2018 7:10:36 PM patient's case discussed with Dr. Barber who feels given the minimal symptoms at this time (NIH score of 2), he is not a candidate for TPA. In addition the patient's physical examination is challenging given his multiple missing teeth and apparent dysarthria along with his chronic "lazy eye ". 06/03/2018 9:09:19 PM I have discussed this patient's CTA findings with Dr. Barber including the occlusion of the vertebral artery. Dr. Barber states that there are no studies to support endovascular intervention for this type of occlusion. It is unclear if this is related to the patient's presentation. Departure Departure Disposition: STILL A PATIENT Condition: Stable Clinical Impression Primary Impression: TIA (transient ischemic attack) Secondary Impressions: Occlusion of right vertebral artery Referrals: Patient Has No Primary Care Dr (PCP/Family) Departure Forms: Customer Survey General Discharge Information
--- NOTE | 2018-06-03 19:04 | CT SCAN REPORT ---
EXAMINATION: CT HEAD WITHOUT CONTRAST CLINICAL INFORMATION: Left-sided weakness. Aphasia. COMPARISON: CT head 05/16/2018 TECHNIQUE: Contiguous axial imaging was performed from the skull base to vertex without intravenous administration of contrast. DLP: 615.19 mGy-cm FINDINGS: There is no evidence of acute intracranial hemorrhage or territorial infarction. No abnormal mass effect or midline shift is seen. Woody to white matter differentiation is well preserved. No extra-axial fluid collections are identified. There is atrophy with prominence of the ventricles and the sulci and hypodensity of the periventricular white matter due to chronic small vessel ischemic disease. There is vascular calcifications of the internal carotid arteries bilaterally. The osseous structures and soft tissues are normal. The mastoid air cells and visualized portions of the paranasal sinuses are well aerated. IMPRESSION: No acute intracranial pathology. This critical result was discussed with Dr. Low on , 7:00 PM and it was ascertained that the content and urgency of the report was understood at the time of direct communication.
[2018-06-03 19:18] LABS: ABSOLUTE BASOPHIL COUNT 0 /CUMM (0.0-0.2); ABSOLUTE EOSINOPHIL COUNT 0.5 /CUMM (0.0-0.7); ABSOLUTE GRANULOCYTE CT 2.3 /CUMM (1.4-6.5); ABSOLUTE LYMPH COUNT 1.1 /CUMM (1.2-3.4); ABSOLUTE MONOCYTE COUNT 0.5 /CUMM (0.10-0.60); BASOPHIL % 0.7 % (0.0-2.0); EOSINOPHIL % 11.9 % (0-5); GRANULOCYTE % 50.7 % (42.2-75.2); HEMATOCRIT 38.3 % (42-52); MEAN CORPUSCULAR HGB 23.8 PG (27.0-31.0); MEAN CORPUSCULAR HGB CONC 31.9 G/DL (33.0-37.0); MEAN CORPUSCULAR VOLUME 74.7 FL (80.0-94.0); MEAN PLATELET VOLUME 7.1 FL (7.4-10.4); PLATELET COUNT 244 /CUMM (130-400); RBC DISTRIBUTION WIDTH 17.6 % (11.5-14.5); RED BLOOD CELL CT 5.12 /CUMM (4.70-6.10); WHITE BLOOD CELL COUNT 4.6 /CUMM (4.8-10.8)
[2018-06-03 19:27] LABS: PT 10.8 SEC (9.4-12.5); PTT 32 SEC (25-37)
--- NOTE | 2018-06-03 20:24 | CT SCAN REPORT ---
EXAMINATION: CT ANGIOGRAM NECK WITH CONTRAST CT ANGIOGRAM BRAIN WITH CONTRAST CLINICAL INFORMATION: Left-sided weakness. Dysphagia. COMPARISON: Head CT performed just earlier. TECHNIQUE: Test bolus sequences followed by intravenous administration 95 mL of Optiray 320. Helical imaging was performed in the axial plane from the thoracic inlet to the skull vertex. Delayed postcontrast imaging of the head was also performed. The data was processed at the rad technologist workstation for generation of MIP sequences. Angled MIPs and volume rendered reformatted images were also generated at an offline 3D workstation. Stenoses are assessed in accordance with NASCET criteria unless otherwise indicated. DLP: 2 mGy-cm FINDINGS: Postcontrast head CT: There is no intracranial hemorrhage, extra-axial collection, mass, or CT evidence of large territory infarction. No abnormal enhancement is seen. The dural venous sinuses demonstrate normal enhancement. The ventricles are normal in size and configuration without evidence of hydrocephalus. There is mild patchy hypoattenuation in the bilateral periventricular white matter likely reflecting small vessel ischemic changes. The visualized paranasal sinuses and mastoid air cells are clear. Neck CTA: There is a three-vessel, left-sided aortic arch. There is no significant stenosis of the great vessel origins. Minimal atheromatous changes are present at the bilateral carotid bifurcations without significant stenosis of the internal carotid arteries. The right vertebral artery appears distended with thrombus just distal to its origin but reconstitutes in the low V2 segment at the C6-C7 level and is patent in the remainder of the neck. The nondominant left vertebral artery appears patent in the neck. Head CTA: The right vertebral artery is patent and is the predominant supply of the basilar artery which is also patent. The nondominant left vertebral artery demonstrates decreased caliber just distal to the PICA takeoff. The PICA is patent throughout its visualized course. The distal intradural left vertebral artery is diminutive with segmental nonopacification which may reflect occlusion or slow flow. The posterior cerebral arteries are patent. The intracranial internal carotid arteries demonstrate atheromatous calcifications at the siphons without significant stenosis. The ACAs are patent. The MCAs are patent with symmetric collaterals. Non-vascular findings: Emphysematous changes are present in the upper lungs. There is diffuse interlobular septal thickening with scattered interstitial changes. No dense consolidation or mass is seen. There is prominent lymphoid tissue in the upper mediastinum without discrete measurable adenopathy and appears similar compared with 02/25/2018. Incidentally noted is right-sided vocal fold paresis. Multilevel degenerative changes are noted in the cervical spine. There is scattered ossification of the posterior longitudinal ligament. Severe facet degenerative change is seen at multiple levels. IMPRESSION: CT head: - No intracranial hemorrhage or large acute infarction. - Given reported symptomatology and findings described below a posterior fossa infarct is suspected but not well-defined at this time. Further evaluation with brain MRI is suggested. CTA neck: - Occlusion of the right vertebral artery just distal to its origin with reconstitution in the low V2 segment. The more distal right vertebral artery is patent. - Both internal carotid arteries are patent. CTA head: - No proximal large vessel occlusion. - Distal intradural left vertebral artery is diminutive which may reflect slow flow or possible occlusion. The intradural right vertebral artery and basilar arteries are widely patent. No posterior cerebral artery abnormality identified. Additional findings: - Severe emphysematous changes in the upper lungs. - Severe facet arthropathy in the cervical spine. - Right-sided vocal fold paresis. This critical result was discussed with Corby Low on 06/03/2018 8:14 PM, and it was ascertained that the content and urgency of the report was understood at the time of direct communication.
--- NOTE | 2018-06-03 23:45 | History & Physical ---
Ramos Owens 06/03/18 2344: General Information and HPI MD Statement: I have seen and personally examined LYLY RUBY and documented this H&P. The patient is a 67 year old M who presented with a patient stated chief complaint of [slurred speech and left-sided numbness]. Source of Information: patient Exam Limitations: poor historian History of Present Illness: The patient is a 67-year-old man with a past medical history significant for hypertension, diabetes mellitus, hyperlipidemia who presented to ED because of numbness and swelling in his tongue and also slurred speech which started from evening. The patient was having a cheeseburger this evening when he felt swelling in his tongue and also he felt numbness and weakness in his left upper and lower extremity. He was able to watch after this episode but had to hold the wall in order to keep his balance. He also had lightheadedness when he had the symptoms. During the examination when he was drinking soda, he coughed several times. He states that his weakness has improved but he is still has slurred speech and a heavy tongue. He believes that his neighbor has poisoned him, because he is jealous and they have had arguments before (he looks like to be paranoid). He is an active smoker and he has a chronic cough with white to yellow sputum. During the physical examination and history he has a slurred speech. Allergies: Is not allergic to any known medications or foods Past medical history: Hypertension, hyperlipidemia, diabetes mellitus, Past surgical history: Noncontributory Family history: Noncontributory Social history: He has been asked smoking 1.5 packs per day cigarettes for the past 40 years, he drinks alcohol occasionally and he denies any recreational drug use. Allergies/Medications Allergies: Coded Allergies: No Known Allergies (01/05/18) Compliance With Home Meds: UNKNOWN Past History Travel History Traveled to [place] past 21 day No Medical History Neurological: NONE EENT: NONE Cardiovascular: hypertension Respiratory: NONE Gastrointestinal: NONE Hepatic: NONE Renal: NONE Musculoskeletal: NONE Psychiatric: NONE Endocrine: diabetes Blood Disorders: NONE Cancer(s): NONE TAXATION ACCOUNTANT/Reproductive: NONE History of MRSA: No History of VRE: No History of CDIFF: No Surgical History Surgical History: non-contributory Review of Systems Review of Systems Constitutional: Reports: see HPI. Exam & Diagnostic Data Last 24 Hrs of Vital Signs/I&O Vital Signs Date Time Temp Pulse Resp B/P B/P Pulse O2 O2 Flow FiO2 Mean Ox Delivery Rate 06/03 2220 78 18 175/88 96 Nasal 2.0L Cannula 06/035 92 20 168/84 96 Nasal 2.0L Cannula 06/03 2057 Nasal 2.0L Cannula 06/03 2000 98.0 92 20 164/82 95 Nasal 2.0L Cannula 06/03 1918 97.0 84 20 176/91 96 Nasal 2.0L Cannula 06/03 190 97.0 92 20 184/91 96 Room Air Intake & Output 06/04 0800 06/04 0000 06/03 1600 Intake Total 0 Output Total 0 Balance 0 Intake, Oral 0 Output, Urine 0 Physical Exam General Appearance Alert, Oriented X3, Cooperative, No Acute Distress Skin LE chronic discoloration due to PVD probably Skin Temp/Moisture Exam: Warm/Dry Sepsis Skin Exam (color): Normal for Ethnicity HEENT Atraumatic, PERRLA, EOMI, Slurred speech Neck Supple Cardiovascular Regular Rate, Normal S1, Normal S2 Lungs Generalized mild wheeze Abdomen Normal Bowel Sounds, Soft, No Tenderness Neurological Normal Speech, Strength at 5/5 X4 Ext, Normal Tone, Sensation Intact, Cranial Nerves 3-12 NL, The patient coughed several times while drinking Extremities Weak pulses in LE, chronic discoloration due to PVD probably Vascular Weak pulses in LE bilateraly, weaker on the right side Last 24 Hrs of Labs/Sandro: Laboratory Tests 06/04/18 0611: Anion Gap 6, Estimated GFR > 60, BUN/Creatinine Ratio 10.0, Total Bilirubin 0.4, Direct Bilirubin 0.2, AST 22, ALT 20 L, Alkaline Phosphatase 134 H, Total Protein 6.7, Albumin 3.5, Triglycerides 93, Cholesterol 181, LDL Cholesterol, Calc 102, HDL Cholesterol 61 H, Cholesterol/HDL Ratio 3, CBC w Diff Pending, WBC Pending, RBC Pending, Hgb Pending, Hct Pending, MCV Pending, MCH Pending, MCHC Pending, RDW Pending, Plt Count Pending, MPV Pending 06/03/18 190: Anion Gap 9, Estimated GFR > 60, BUN/Creatinine Ratio 7.8, Glucose 247 H, Calcium 8.6, Total Bilirubin 0.2, AST 23, ALT 20 L, Alkaline Phosphatase 132 H , Total Protein 6.5, Albumin 3.4 L, Globulin 3.1, Albumin/Globulin Ratio 1.1, PT 10.8, INR 0.99, APTT 32, CBC w Diff NO MAN DIFF REQ, RBC 5.12, MCV 74.7 L, MCH 23.8 L, MCHC 31.9 L, RDW 17.6 H, MPV 7.1 L, Gran % 50.7, Lymphocytes % 24.7, Monocytes % 12.0 H, Eosinophils % 11.9 H, Basophils % 0.7, Absolute Granulocytes 2.3, Absolute Lymphocytes 1.1 L, Absolute Monocytes 0.5, Absolute Eosinophils 0.5, Absolute Basophils 0 Assessment/Plan Assessment: The patient is a 67-year-old male with a past medical history significant for hypertension, diabetes mellitus, hyperlipidemia, he is also an active smoker who presented with chief complaint of slurred speech and left-sided numbness in his body. CVA/TIA: The patient has several risk factors for cerebral event including old male age, hypertension, hyperlipidemia, diabetes mellitus, peripheral vascular disease, active smoker. He has acute onset slurred speech with numbness in his left side of body. Physical examination he did not have any focal neurological finding other than slurred speech. Plan: Check blood sugar, electrolytes, head CT scan without contrast, if not hemorrhagic anticoagulation, frequent neuro checks, neurology consult As Ranked By This Provider Problem List: 1. TIA (transient ischemic attack) 2. Occlusion of right vertebral artery Core Measures/Misc (06/02) Acute Coronary Syndrome ACS Diagnosis: No Congestive Heart Failure Congestive Heart Failure Diagnosis No Cerebrovascular Accident CVA/TIA Diagnosis: Yes VTE (View Protocol) VTE Risk Factors Age>40 No Mechanical VTE Prophylaxis d/t N/A MechProphylax Ordered No VTE Pharm Prophylaxis d/t NA PharmProphylax ordered Sepsis (View protocol) Sepsis Present: No If YES complete Sepsis Event Note If YES complete Sepsis Event Note Tank GUERRERO,Shyanne 06/04/18 0056: General Information and HPI Allergies/Medications Home Med list Albuterol Sulfate (Ventolin Hfa) 90 MCG HFA.AER.AD 2 PUF INH Q4-6 PRN PRN WHEEZING Aspirin (Aspirin*) 81 MG TAB.CHEW 81 MG PO DAILY HEART HEALTH Atorvastatin Calcium 40 MG TABLET 1 TAB PO DAILY HIGH CHOLESTROL Baclofen 10 MG TABLET 1 TAB PO TID PRN muscle strain Clopidogrel Bisulfate (Clopidogrel) 75 MG TABLET 1 TAB PO DAILY BLOOD THINNER Furosemide (Lasix) 40 MG TABLET 40 MG PO 7:30 AM, & 4:30 PM WATER RETENTION Ibuprofen 600 MG TABLET 1 TAB PO Q6P PRN pain with food Lisinopril 10 MG TABLET 10 MG PO DAILY HIGH BLOOD PRESSURE Metformin HCl 500 MG TABLET 1 TAB PO BID DIABETES Oxycodone HCl/Acetaminophen (Percocet 5-325 MG Tablet) 5 MG-325 MG TABLET 1 TAB PO TID PRN pain six... [id number] Tamsulosin HCl (Flomax) 0.4 MG CAP.ER.24H 1 CAP PO DAILY DIFFICULTY URINATING Core Measures/Misc (06/02) Congestive Heart Failure Congestive Heart Failure Diagnosis No Cerebrovascular Accident CVA/TIA Diagnosis: Yes NIH Stroke Scale: Total 3 Date Last Known Well: 06/04/18 Time Last Known Well: 1600 Symptom Start Date: 06/04/18 Symptom Start Time: 1630 tPA Risk/Benefit discussion I have discussed the risks, benefits, and alternatives of Alteplase treatment including: - If given promptly, can resolve or have major improvement in stroke symptoms. - Bleeding (hemorrhage) is the most common risk that can occur. - Bleeding may occur into the brain and cause~[facility] serious disability~ including - this is rare, affecting about 1% of patients. - Alternative treatments with proven benefit for patients with stroke include aspirin and care in a specialized unit where staff members pay careful attention to a variety of basic aspects of care. tPA given? No Swallow Evaluation Fail Sepsis (View protocol) If YES complete Sepsis Event Note If YES complete Sepsis Event Note Resident Review Statement Resident Statement: examined this patient, discussed with internet marketing director, agreed with internet marketing director, discussed with family, reviewed EMR data (avail), discussed with nursing , discussed with case mgmt, reviewed images, amended to note Other Findings: Patient is a 67 Y M with PMH of HTN, uncontrolled DM recently discharged after being treated for bilaterl lower extremity edema presented with sudden onset slurring of speech, feeling week while eating cheese burger this evening around 5:30pm. A stroke alert was called intially. He also reports heaviness and weakness of his tongue since yesterday. He is drinking soda during our conversation due to which he coughed persistently. ROS otherwise negative. VS at presentation are afebrile, HR 90, BP 184/91mmHg, saturating on 2L. Physical exam is significant for facial droop, mild slurring, weakness on the left side. Labs did show glucose of 247, ALP 134/AT 20. Imaging did show No acute hemorrhage in CT head without contrast, CT angio head did show low flow with possible occlusion distal intradural left vertebral artery. Severe emysematous changes in lungs Plan Admit to telemety floor Acute ischemic stroke * Asprin + plavix * Permissive hypertension * NIH stroke scale * MRI head for further localization of stroke * Swallow eval/PT/OT/Speech * Lipid panel in am * ECHO was recently done * Neurology consult - unable to reach answer service H/o HTN hold antihypertensives H/o uncontrolled DM Accuchecks, Insulin sliding scale DVT prophylaxis ALPS Code status Full code NPO pending swallow Kenyon Jamil 06/04/18 0113: Core Measures/Misc (06/02) Sepsis (View protocol) If YES complete Sepsis Event Note If YES complete Sepsis Event Note Attending MD Review Statement Attending Statement Attending MD Statement: examined this patient, discuss w/resident/PA/THERAPIST OCCUPATIONAL, agreed w/resident/PA/THERAPIST OCCUPATIONAL Attending Assessment/Plan: Addendum by . Patient was seen and examined at bedside today ( 06/04/18 ) at 12;30am. Reviewed the history physical done by the resident. Reviewed the past medical family, family, social history. ROS: 10 point system reviewed and negative except as described above. Patient started having slurred speech around 5:30 PM yesterday. Patient also felt some weakness in the left upper extremity. He says normally speech is fluent. On exam: Alert, awake able to answer questions but has a slurred speech, left facial droop. Speech is pressured though it is comprehensible. Other cranial nerves exam is normal. Pronator drift noted on the left upper extremity. Power is 5 x 5 in proximal and distal muscles bilaterally upper and lower extremities. Reflexes are sluggish to in all extremities. Babinski sign is negative. Cardiac exam-regular heart sounds, no murmurs. Lung exam-has bilateral moderate expiratory wheezing. See the full exam per resident note CT brain, CTA brain and neck, chest x-ray, labs reviewed. Telemetry tracings reviewed. EKG reviewed. Assessment plan: #Left facial droop with left upper extremity weakness consistent with right MCA ischemic stroke. CT brain, CTA brain were negative for any acute stroke. Her clinical picture is suspicious for acute stroke. Patient needs MRI of the brain to confirm it. We will put him on aspirin, Plavix given his vertebral artery stenosis as well as an acute stroke. Also give atorvastatin 80 mg., Permissive hypertension do not treat unless the blood pressure is greater than 220/100. Neuro evaluation in the a.m. monitor on telemetry. Get PT OT, swallow evaluation. Also DVT prophylaxis with Lovenox. Per ER patient was out of window for TPA, they spoke to neurology from ER. #Bilateral leg edema, likely chronic. #mild COPD exacerbation. Put patient on prednisone 40 mg daily, DuoNeb nebulizations every 4 as needed. #Smoker-cessation was advised patient needs a proper risk modification given his stroke. He has nicotine patch. Haydee- Right-sided vocal fold paresis. Not sure whether this is due to stroke or old finding. Keep him n.p.o. for now. ENT evaluation. #Occlusion of the right vertebral artery just distal to its origin with reconstitution in the low V2 segment. The more distal right vertebral artery is patent. Patient's symptoms does not seem to be due to posterior circulation problem. Per guidelines, patient need to be on aspirin and Plavix for 3 months. Will defer this to neuro whether patient needs neurovascular intervention in the future. Reviewed with the resident. Agree with the rest of the plan as per resident's note. Dr.Ravinder Ankit MD. Hospitalist. Pager: [phone], cell: [phone].
--- NOTE | 2018-06-04 07:45 | PN- Housestaff ---
Stefano Horowitz 06/04/18 0745: Subjective Follow-up For: TIA Occlusin of right vertebral artery Hx. HFpEF Hx. Diabetes mellitus Subjective: Afebrile overnight. Patient is seen and examined this morning. Patient is awake and eating breakfast this morning. Patient reiterates his history of presentation by stating he started having weakness and numbness with an associated "heavy tongue" yesterday afternoon. Patient states he is feeling better this morning. Patient further denies any symptoms of nausea, vomiting, chest pain, palpitations, falls, loss of consciousness, and shortness of breath. Patient states he lives at home alone and does not use a walker or cane. Patient states he does not have a PCP. Review of Systems Constitutional: Reports: see HPI. Objective Last 24 Hrs of Vital Signs/I&O Vital Signs Date Time Temp Pulse Resp B/P B/P Pulse O2 O2 Flow FiO2 Mean Ox Delivery Rate 06/03 2220 78 18 175/88 96 Nasal 2.0L Cannula 06/03 2105 92 20 168/84 96 Nasal 2.0L Cannula 06/03 2057 Nasal 2.0L Cannula 06/03 2000 98.0 92 20 164/82 95 Nasal 2.0L Cannula 06/03 1918 97.0 84 20 176/91 96 Nasal 2.0L Cannula 06/03 1905 97.0 92 20 184/91 96 Room Air Intake & Output 06/04 0800 06/04 0000 06/03 1600 Intake Total 0 Output Total 0 Balance 0 Intake, Oral 0 Output, Urine 0 Physical Exam General Appearance: Alert, Oriented X3, Cooperative, No Acute Distress, Slurred speech Skin: No Rashes, No Breakdown Skin Temp/Moisture Exam: Warm/Dry HEENT: Atraumatic Neck: Supple Cardiovascular: Regular Rate, Normal S1, Normal S2 Lungs: wheezing noted on exam Abdomen: Soft, No Tenderness Neurological: left facial droop; strength 5/5 in b/l UE and LE Extremities: b/l lower extremity edema Assessment/Plan Assessment: Head MRI - No acute infarct is identified with special attention to the posterior fossa. No intracranial hemorrhage or mass. - Moderate small vessel ischemic changes in the cerebral white matter. ECHO 02/26/18- 1. Aortic sclerosis is prsent with mild aortic insufficiency. 2. Mitral leaflet thickening is present with mild to moderate mitral insufficiency and moderate left atrial enlargement 3. There is no pericardial fluid present. 4. The left ventricular chamber is mildly dilated with mild eccentric hypertrophy and an ejection fraction of 50-55%. MIld diastolic dysfunction is present. 5. Minimal to mild tricuspid and pulmonic insufficiency are present with mild pulmonary hypertension. Mild dilatation of the IVC is also noted. CT HEAD ANGIOGRAM, CT NECK ANGIOGRAM - CT head: - No intracranial hemorrhage or large acute infarction. - Given reported symptomatology and findings described below a posterior fossa infarct is suspected but not well-defined at this time. Further evaluation with brain MRI is suggested. CTA neck: - Occlusion of the right vertebral artery just distal to its origin with reconstitution in the low V2 segment. The more distal right vertebral artery is patent. - Both internal carotid arteries are patent. CTA head: - No proximal large vessel occlusion. - Distal intradural left vertebral artery is diminutive which may reflect slow flow or possible occlusion. The intradural right vertebral artery and basilar arteries are widely patent. No posterior cerebral artery abnormality identified. 67-year-old male with a past medical history significant for hypertension, diabetes mellitus, hyperlipidemia, HFpEF (ejection fraction of 50-55% in February 2018), and an active smoker who presented with chief complaint of slurred speech and left-sided numbness in his body. Patient admitted to telemetry for the following reasons: #TIA with associated left facial droop and reported left upper extremity weakness -Patient admitted to telemetry floor for managment of vitals -Neuro Checks q4 -CT head negative for any acute intracranial abnormality -CTA head/neck with findings of occlusion of the right vertebral artery -Neurology consulted; awaiting recs -Follow up MRI brain; no acute infarct is identified -Aspirin 81 mg, Plavix 75 mg, and Atorvastatin 40 mg. -Permissive hypertension do not treat unless the blood pressure is greater than 220/100 -PT/OT evaluation -Swallow evaluation; recommended Chopped solids and Thin liquids with single sip swallows #HFpEF, recent ECHO ejection fraction at 50-55% -Diuresis with Lasix 40 mg bid -Peripheral edema noted on exam -Patient follows Dr. Phillips for cardiology -Folllow up with patient's output #COPD exacerbation; history of active smoking -SoluMedrol IV 40 mg q12 -Patient advised to seek smoking cessation -Patient needs a proper risk modification given his TIA -He has nicotine patch. #Diabetes Mellitus -Insulin, Sliding Scale -AccuChecks -Holding home dose of Metformin -Recent A1c 7.7 (02/25/18) #Home medications -Continue home medications as required Code Status: Full Code DVT PPx. - Mechanical Consistent Carb 2 Problem List: 1. TIA (transient ischemic attack) 2. Occlusion of right vertebral artery 3. Diabetes mellitus 4. (HFpEF) heart failure with preserved ejection fraction Pain Ratin Pain Location: na Pain Goal: Remain pain free Pain Plan: prn meds Tomorrow's Labs & Rationales: routine Maury Osei MD 06/04/18 1249: Attending MD Review Statement Attending Statement Attending MD Statement: examined this patient, discuss w/resident/PA/DRESSER TENDER, agreed w/resident/PA/DRESSER TENDER, reviewed EMR data (avail)
[2018-06-04 08:44] LABS: ABSOLUTE BASOPHIL COUNT 0 /CUMM (0.0-0.2); ABSOLUTE EOSINOPHIL COUNT 0.6 /CUMM (0.0-0.7); ABSOLUTE GRANULOCYTE CT 3.2 /CUMM (1.4-6.5); ABSOLUTE LYMPH COUNT 1.1 /CUMM (1.2-3.4); ABSOLUTE MONOCYTE COUNT 0.5 /CUMM (0.10-0.60); BASOPHIL % 0.7 % (0.0-2.0); EOSINOPHIL % 10.4 % (0-5); GRANULOCYTE % 59.3 % (42.2-75.2); HEMATOCRIT 41.6 % (42-52); MEAN CORPUSCULAR HGB 23.3 PG (27.0-31.0); MEAN CORPUSCULAR HGB CONC 31.2 G/DL (33.0-37.0); MEAN CORPUSCULAR VOLUME 74.6 FL (80.0-94.0); MEAN PLATELET VOLUME 7.8 FL (7.4-10.4); PLATELET COUNT 257 /CUMM (130-400); RBC DISTRIBUTION WIDTH 17.8 % (11.5-14.5); RED BLOOD CELL CT 5.57 /CUMM (4.70-6.10); WHITE BLOOD CELL COUNT 5.4 /CUMM (4.8-10.8)
--- NOTE | 2018-06-04 09:35 | Patient Discharge Instructions ---
Discharge Instructions General Discharge Information You were seen/treated for: Transient Ischemic Attack You had these procedures: Head CT Neck/Head CTA Watch for these problems: If you experience any weakness, numbness, dizziness, and lightheadedness please follow up with your PCP. Special Instructions: Please follow up with your PCP. Please continue your home medications. Diet Continue normal diet: No Recommended Diet: Diabetic Activity Full Activity/No Limits: No Activity Self Limited: Yes Acute Coronary Syndrome Inclusion Criteria At DC or during hospital stay patient has or had the following: ACS DIAGNOSIS No Discharge Core Measures Meds if any: Prescribed or Continued at Discharge Meds if any: NOT Prescribed or Continued at Discharge Congestive Heart Failure Inclusion Criteria At DC or during hospital stay patient has or had the following: CHF DIAGNOSIS No Discharge Core Measures Meds if any: Prescribed or Continued at Discharge Meds if any: NOT Prescribed or Continued at Discharge Cerebrovascular accident Inclusion Criteria At DC or during hospital stay patient has or had the following: CVA/TIA Diagnosis Yes Discharge Core Measures Meds if any: Prescribed or Continued at Discharge Meds if any: NOT Prescribed or Continued at Discharge Venous thromboembolism Inclusion Criteria VTE Diagnosis No VTE Type NONE VTE Confirmed by (Test) NONE Discharge Core Measures - Per Current guidelines, there needs to be overlap - treatment for the first 5 days of Warfarin therapy. - If discharged on Warfarin prior to 5 days of - overlap therapy, the patient will need to be - assessed for post discharge needs including - *Post discharge parental anticoagulation - *Warfarin and/or parental anticoagulation education - *Follow up date to check INR post discharge At least 5 days overlap therapy as Inpatient No Meds if any: Prescribed or Continued at Discharge Note: Overlap Therapy is Warfarin and Anticoagulant Meds if any: NOT Prescribed or Continued at Discharge
--- NOTE | 2018-06-04 09:39 | Discharge Summary ---
Visit Information Visit Dates Admission Date: 06/03/18 Discharge Date: 06/05/18 Hospital Course Course Attending Physician: Maury Osei MD Primary Care Physician: Patient Has No Primary Care Dr Hospital Course: 67-year-old male with a past medical history significant for hypertension, diabetes mellitus, hyperlipidemia, HFpEF (ejection fraction of 50-55% in February 2018), and an active smoker who presented with chief complaint of slurred speech and left-sided numbness in his body. 1. Transient Ischemic Attack -Patient admitted to telemetry due to left facial droop and reported left upper extremity weakness. Patient blood pressure and heart rate was 184/91 and 92, respectively on admission. CT head negative for any acute intracranial abnormality. CTA head/neck with findings of occlusion of the right vertebral artery just distal to its origin with reconstitution in the low V2 segment. The more distal right vertebral artery is patent. Neurology consulted and ordered a follow up MRI brain which resulted in findings including no acute infarct identified, with special attention to the posterior fossa. Permissive hypertension was maintained and patient's vitals and neurology checks were frequently monitored. Patient given Aspirin 81 mg, Plavix 75 mg, and Atorvastatin 40 mg. Patient on 06/05/18 became overtly agitated, stating that he did not receive a specific food item, notably a banana, for his morning meal. Patient on recap states "nothing happened" and he simply wanted to go and leave the hospital, without expressing clearly his reasoning. Patient was explained the risks of leaving the hospital. Informed the resident and attending of the situation. Patient eventually signed the AMA form. Patient was subsequently discharged AMA. We, nevertheless, referred patient to a PCP and to have close follow up as an outpatient. Allergies: Coded Allergies: No Known Allergies (01/05/18) Significant Procedures: ECHO 02/26/18- 1. Aortic sclerosis is prsent with mild aortic insufficiency. 2. Mitral leaflet thickening is present with mild to moderate mitral insufficiency and moderate left atrial enlargement 3. There is no pericardial fluid present. 4. The left ventricular chamber is mildly dilated with mild eccentric hypertrophy and an ejection fraction of 50-55%. MIld diastolic dysfunction is present. 5. Minimal to mild tricuspid and pulmonic insufficiency are present with mild pulmonary hypertension. Mild dilatation of the IVC is also noted. Head MRI - No acute infarct is identified with special attention to the posterior fossa. No intracranial hemorrhage or mass. - Moderate small vessel ischemic changes in the cerebral white matter. CT HEAD ANGIOGRAM, CT NECK ANGIOGRAM - CT head: - No intracranial hemorrhage or large acute infarction. - Given reported symptomatology and findings described below a posterior fossa infarct is suspected but not well-defined at this time. Further evaluation with brain MRI is suggested. CTA neck: - Occlusion of the right vertebral artery just distal to its origin with reconstitution in the low V2 segment. The more distal right vertebral artery is patent. - Both internal carotid arteries are patent. CTA head: - No proximal large vessel occlusion. - Distal intradural left vertebral artery is diminutive which may reflect slow flow or possible occlusion. The intradural right vertebral artery and basilar arteries are widely patent. No posterior cerebral artery abnormality identified. Disposition Summary Disposition Principal Diagnosis: TIA Additional Diagnosis: Hx. of Diabetes Mellitus Discharge Disposition: left against medical adv Discharge Instructions General Discharge Information Code Status: Full Code Patient's Diet: Diabetic Patient's Activity: Ad terar Follow-Up Instructions/Appts: Please follow up with your PCP within one week. Please continue your home medications. Medications at Discharge Discharge Medications: Stop taking the following medications: Ibuprofen (Ibuprofen) 600 MG TABLET ORAL EVERY SIX HOURS NEEDED as needed for pain Qty = 50 Continue taking these medications: Albuterol Sulfate (Ventolin Hfa) 90 MCG HFA.AER.AD 2 Puff Inhale through mouth EVERY 4-6 HOURS NEEDED as needed for WHEEZING Qty = 1 Comments: NOT GIVEN IN HOSPITAL Tamsulosin HCl (Flomax) 0.4 MG CAP.ER.24H 1 Capsule ORAL DAILY Qty = 20 Comments: NOT GIVEN IN HOSPITAL Metformin HCl (Metformin HCl) 500 MG TABLET 1 Tablet ORAL TWICE DAILY Qty = 60 Comments: NOT GIVEN IN HOSPITAL Lisinopril (Lisinopril) 10 MG TABLET 10 Milligram ORAL DAILY Qty = 90 Comments: Last Taken:02/28/18 Time:800 AM Aspirin (Aspirin*) 81 MG TAB.CHEW 81 Milligram ORAL DAILY Qty = 90 Comments: Last Taken:02/28/18 Time:1054 AM Furosemide (Lasix) 40 MG TABLET 40 Milligram ORAL 7:30AM & 4:30PM Qty = 90 Comments: Last Taken:02/28/18 Time:800 AM Atorvastatin Calcium (Atorvastatin Calcium) 40 MG TABLET 1 Tablet ORAL DAILY Qty = 30 Comments: Last Taken:02/27/18 Time:430 PM Baclofen (Baclofen) 10 MG TABLET 1 Tablet ORAL THREE TIMES DAILY as needed for muscle strain Qty = 30 Oxycodone HCl/Acetaminophen (Percocet 5-325 MG Tablet) 5 MG-325 MG TABLET 1 Tablet ORAL THREE TIMES DAILY as needed for pain Qty = 6 Instructions: six... [id number] Start taking the following new medications: Clopidogrel Bisulfate (Clopidogrel) 75 MG TABLET 1 Tablet ORAL DAILY Qty = 30 No Refills Copies To: no PCP Attending MD Review Statement Documenting Attending: Maury Osei MD
--- NOTE | 2018-06-04 09:47 | PN- Student ---
Subjective Subjective: Patient was seen and examined this am. Pt was afebrile with elevated BP (175/88) . Pt was alert and cooperative. Pt notes that he thinks his neighbor poisoned him. Pt continues to report that his lips and tongue feel numb. Pt continues to have slurred speech. Was seen with speech therapist, reports that patient is ok with single sip swallows but hesistant with multiple sips due to fear of choking. However, prior to physical exam, patient was seen taking multiple sips of apple juice. During physical exam, patient seemed confused with instructions for finger to nose testing, but was otherwise cooperative and able to follow instructions. Objective Objective: Current Medications Sig/Wil Start time Last Medication Dose Stop Time Status Admin Aspirin 81 MG DAILY 06/04 0900 AC 06/04 (Aspirin) 0851 Aspirin Buffered 81 MG DAILY 06/04 0900 CAN (Ecotrin) Atorvastatin Calcium 40 MG 1700 06/04 1700 AC (Lipitor) Clopidogrel Bisulfate 75 MG DAILY 06/05 0900 CAN (Plavix) Furosemide 40 MG 7:30 AM, & 4:30 PM 06/04 0730 AC 06/04 (Lasix) 0851 Insulin Aspart 0 AT BEDTIME 06/04 2100 UNVr (NovoLOG) Insulin Aspart 0 TIDAC 06/04 0915 UNVr (NovoLOG) Results Results: Laboratory Tests 06/04/18 0611: Anion Gap 6, Estimated GFR > 60, BUN/Creatinine Ratio 10.0, Hemoglobin A1c Pending, Total Bilirubin 0.4, Direct Bilirubin 0.2, AST 22, ALT 20 L, Alkaline Phosphatase 134 H, Total Protein 6.7, Albumin 3.5, Triglycerides 93, Cholesterol 181, LDL Cholesterol, Calc 102, HDL Cholesterol 61 H, Cholesterol/ HDL Ratio 3, CBC w Diff NO MAN DIFF REQ, RBC 5.57, MCV 74.6 L, MCH 23.3 L, MCHC 31.2 L, RDW 17.8 H, MPV 7.8, Gran % 59.3, Lymphocytes % 20.7, Monocytes % 8.9, Eosinophils % 10.4 H, Basophils % 0.7, Absolute Granulocytes 3.2, Absolute Lymphocytes 1.1 L, Absolute Monocytes 0.5, Absolute Eosinophils 0.6, Absolute Basophils 0 06/03/18 1909: Anion Gap 9, Estimated GFR > 60, BUN/Creatinine Ratio 7.8, Glucose 247 H, Calcium 8.6, Total Bilirubin 0.2, AST 23, ALT 20 L, Alkaline Phosphatase 132 H , Total Protein 6.5, Albumin 3.4 L, Globulin 3.1, Albumin/Globulin Ratio 1.1, PT 10.8, INR 0.99, APTT 32, CBC w Diff NO MAN DIFF REQ, RBC 5.12, MCV 74.7 L, MCH 23.8 L, MCHC 31.9 L, RDW 17.6 H, MPV 7.1 L, Gran % 50.7, Lymphocytes % 24.7, Monocytes % 12.0 H, Eosinophils % 11.9 H, Basophils % 0.7, Absolute Granulocytes 2.3, Absolute Lymphocytes 1.1 L, Absolute Monocytes 0.5, Absolute Eosinophils 0.5, Absolute Basophils 0 PHYSICAL EXAM Last 24hrs of Vital Signs Vital Signs Date Time Temp Pulse Resp B/P B/P Pulse O2 O2 Flow FiO2 Mean Ox Delivery Rate 06/03 2220 78 18 175/88 96 Nasal 2.0L Cannula 06/03 2105 92 20 168/84 96 Nasal 2.0L Cannula 06/03 2057 Nasal 2.0L Cannula 06/03 2000 98.0 92 20 164/82 95 Nasal 2.0L Cannula 06/03 1918 97.0 84 20 176/91 96 Nasal 2.0L Cannula 06/03 1905 97.0 92 20 184/91 96 Room Air Physical Exam General Appearance Alert, Cooperative, No Acute Distress HEENT Atraumatic, PERRLA, EOMI Cardiovascular Regular Rate, Normal S1, Normal S2 Lungs Clear to Auscultation, Normal Air Movement (bilateral wheezing) Abdomen Normal Bowel Sounds, Soft, No Tenderness Neurological Normal Gait (left pronator drift), Strength at 5/5 X4 Ext, Normal Tone, Cranial Nerves 3-12 NL, Reflexes 2+ Assessment/Plan Assessment: Mr. Iniguez is a 67 yo M with a PMH of hypertension, hyperlipidemia, and diabetes presenting with numbness of lips and tongue. Pt also reports lightheadedness and feeling off balance. Pt reports thoughts that the neighbor poisoned him, but denies any physical or verbal altercations with neighbor. Pt is an active smoker of 1.5 packs/day and drinks alcohol occasionally "when he has the money for it", and denies any recreational drug use (marijuana, heroin, cocaine). On PE, CN 2- 12 were intact, no tongue weakness or facial droop/weakness, 5/5 strength in UE and LE, 2+ reflexes, left pronator drist. Pt had bilateral lower lobe expiratory wheezing. Some slurred speech was noted, mostly when patient was talking at a faster rate. Pt appeared to have involuntary movements of mouth. Pt has mild microcytic anemia, mildly elevated alk phos, and a1c 8.6. Head CTA: IMPRESSION: CT head: - No intracranial hemorrhage or large acute infarction. - Given reported symptomatology and findings described below a posterior fossa infarct is suspected but not well-defined at this time. Further evaluation with brain MRI is suggested. CTA neck: - Occlusion of the right vertebral artery just distal to its origin with reconstitution in the low V2 segment. The more distal right vertebral artery is patent. - Both internal carotid arteries are patent. CTA head: - No proximal large vessel occlusion. - Distal intradural left vertebral artery is diminutive which may reflect slow flow or possible occlusion. The intradural right vertebral artery and basilar arteries are widely patent. No posterior cerebral artery abnormality identified. Additional findings: - Severe emphysematous changes in the upper lungs. - Severe facet arthropathy in the cervical spine. - Right-sided vocal fold paresis. Plan: 1.TIA - pending MRI, f/u neurology consult - added clopidogrel 75mg - continue aspirin 2. Hypertension - monitor blood pressure, currently 175/88 - continue on furosemide, 40mg
--- NOTE | 2018-06-04 12:20 | MRI REPORT ---
EXAMINATION: MR BRAIN WITHOUT CONTRAST CLINICAL INFORMATION: Slurring of speech, aphasia, and vocal fold paralysis. COMPARISON: Head CT 06/03/2018. TECHNIQUE: Multiplanar, multisequence imaging of the brain was performed without intravenous contrast. The images are mildly motion degraded. Diagnostic information is still obtained. \H\ \N\FINDINGS: There is no acute infarction, mass, hemorrhage, or extra-axial collection. There are moderate foci of T2 hyperintensity throughout the bilateral cerebral white matter compatible small vessel ischemic changes. There is mild commensurate prominence of the ventricles and sulci. There is no hydrocephalus. The flow voids of the major intracranial arteries appear intact. The orbital contents appear normal. There is minimal paranasal sinus mucosal thickening without fluid levels. IMPRESSION: - No acute infarct is identified with special attention to the posterior fossa. No intracranial hemorrhage or mass. - Moderate small vessel ischemic changes in the cerebral white matter.
[2018-06-04 17:26] VITALS: BP 188/100
[2018-06-04 22:47] VITALS: BP 180/100
[2018-06-05 06:33] VITALS: BP 170/94
--- NOTE | 2018-06-05 07:59 | PN- Housestaff ---
Subjective Follow-up For: TIA Occlusin of right vertebral artery Hx. HFpEF Hx. Diabetes mellitus Subjective: Afebrile overnight. Patient is seen and examined this morning. Patient states he feels better today. Patient denies any chest pain, shortness of breath, palpitations, and fatigue. Patient states he has had weakness on his left side but cannot recall for how long. Patient states he has been eating fine with no complaints or issues going to the bathroom. Patient today became severely agitated and unconsolable due to not receiving his appropriate morning meal. Patient eventually decided to leave AMA. Discussed with resident and attending and patient was subsequently discharged AMA from the hospital. Review of Systems Constitutional: Reports: see HPI. Objective Last 24 Hrs of Vital Signs/I&O Vital Signs Date Time Temp Pulse Resp B/P B/P Pulse O2 O2 Flow FiO2 Mean Ox Delivery Rate 06/05 0633 98.6 89 20 170/94 93 Room Air 06/05 0000 94 Room Air 06/04 2247 97.4 79 20 180/100 93 Room Air 06/04 1726 98.6 85 16 188/100 93 Room Air 06/04 1533 98.5 71 18 172/86 94 Room Air 06/04 1216 98.8 69 18 181/92 94 Intake & Output 06/05 1600 06/05 0800 06/05 0000 Intake Total 120 240 Output Total Balance 120 240 Intake, Oral 120 240 Patient 172 lb Weight Weight Bed scale Measurement Method Physical Exam General Appearance: Alert, Oriented X3, Cooperative, No Acute Distress Skin: No Rashes, No Breakdown Skin Temp/Moisture Exam: Warm/Dry HEENT: Atraumatic Neck: Supple Cardiovascular: Regular Rate, Normal S1, Normal S2 Lungs: Clear to Auscultation Abdomen: Soft, No Tenderness Neurological: Strength at 5/5 X4 Ext, Sensation Intact, left sided pronator drift of UE Assessment/Plan Assessment: Head MRI - No acute infarct is identified with special attention to the posterior fossa. No intracranial hemorrhage or mass. - Moderate small vessel ischemic changes in the cerebral white matter. ECHO 02/26/18- 1. Aortic sclerosis is prsent with mild aortic insufficiency. 2. Mitral leaflet thickening is present with mild to moderate mitral insufficiency and moderate left atrial enlargement 3. There is no pericardial fluid present. 4. The left ventricular chamber is mildly dilated with mild eccentric hypertrophy and an ejection fraction of 50-55%. MIld diastolic dysfunction is present. 5. Minimal to mild tricuspid and pulmonic insufficiency are present with mild pulmonary hypertension. Mild dilatation of the IVC is also noted. CT HEAD ANGIOGRAM, CT NECK ANGIOGRAM - CT head: - No intracranial hemorrhage or large acute infarction. - Given reported symptomatology and findings described below a posterior fossa infarct is suspected but not well-defined at this time. Further evaluation with brain MRI is suggested. CTA neck: - Occlusion of the right vertebral artery just distal to its origin with reconstitution in the low V2 segment. The more distal right vertebral artery is patent. - Both internal carotid arteries are patent. CTA head: - No proximal large vessel occlusion. - Distal intradural left vertebral artery is diminutive which may reflect slow flow or possible occlusion. The intradural right vertebral artery and basilar arteries are widely patent. No posterior cerebral artery abnormality identified. 67-year-old male with a past medical history significant for hypertension, diabetes mellitus, hyperlipidemia, HFpEF (ejection fraction of 50-55% in February 2018), and an active smoker who presented with chief complaint of slurred speech and left-sided numbness in his body. Patient admitted to telemetry for the following reasons: #TIA with associated left facial droop and reported left upper extremity weakness -Patient admitted to telemetry floor for managment of vitals -Neuro Checks q4 -CT head negative for any acute intracranial abnormality -CTA head/neck with findings of occlusion of the right vertebral artery -Neurology consulted; awaiting recs; neurology physician came to patient's room today but patient was in the process of leaving AMA -Follow up MRI brain; no acute infarct is identified -Aspirin 81 mg, Plavix 75 mg, and Atorvastatin 40 mg. -Permissive hypertension do not treat unless the blood pressure is greater than 220/100 -PT/OT evaluation -Swallow evaluation; recommended Chopped solids and Thin liquids with single sip swallows -Patient today 06/05 became agitated and disheveled regarding his diet order for the morning, became unconsolable and wanted to leave AMA. Discussed with patient the risks of leaving AMA and did not become agreeable to staying any longer in the hospital. Discussed with resident and attending the current situation. Patient was subsequently discharged AMA. #HFpEF, recent ECHO ejection fraction at 50-55% -Diuresis with Lasix 40 mg bid -Peripheral edema noted on exam -Patient follows Dr. Phillips for cardiology -Folllow up with patient's output #COPD exacerbation; history of active smoking -SoluMedrol IV 40 mg q12 -Patient advised to seek smoking cessation -Patient needs a proper risk modification given his TIA -He has nicotine patch. #Diabetes Mellitus -Insulin, Sliding Scale -AccuChecks -Holding home dose of Metformin -Recent A1c 7.7 (02/25/18) #Home medications -Continue home medications as required Code Status: Full Code DVT PPx. - Mechanical Consistent Carb 2 Problem List: 1. TIA (transient ischemic attack) 2. Occlusion of right vertebral artery 3. Diabetes mellitus 4. (HFpEF) heart failure with preserved ejection fraction Pain Ratin Pain Location: na Pain Goal: Remain pain free Pain Plan: na Tomorrow's Labs & Rationales: routine
[2018-06-05 08:25] LABS: ABSOLUTE BASOPHIL COUNT 0 /CUMM (0.0-0.2); ABSOLUTE EOSINOPHIL COUNT 0 /CUMM (0.0-0.7); ABSOLUTE GRANULOCYTE CT 4.7 /CUMM (1.4-6.5); ABSOLUTE LYMPH COUNT 0.7 /CUMM (1.2-3.4); ABSOLUTE MONOCYTE COUNT 0.1 /CUMM (0.10-0.60); BASOPHIL % 0 % (0.0-2.0); EOSINOPHIL % 0.1 % (0-5); HEMATOCRIT 42.7 % (42-52); MEAN CORPUSCULAR HGB 23.6 PG (27.0-31.0); MEAN CORPUSCULAR HGB CONC 31.4 G/DL (33.0-37.0); MEAN PLATELET VOLUME 7.9 FL (7.4-10.4); PLATELET COUNT 269 /CUMM (130-400); RBC DISTRIBUTION WIDTH 17.6 % (11.5-14.5); WHITE BLOOD CELL COUNT 5.4 /CUMM (4.8-10.8)
--- NOTE | 2018-06-05 09:14 | Event Note ---
Event Note Event Note: S:67-year-old male with a past medical history significant for hypertension, diabetes mellitus, hyperlipidemia, HFpEF (ejection fraction of 50-55% in February 2018), and an active smoker who presented to the ED with a chief complaint of slurred speech and left-sided numbness in his body. O: Patient today 06/05/18 became overtly agitated, stating that he did not receive his banana for his morning meal. Patient on recap states "nothing happened" and he simply wanted to go and leave the hospital, without expressing clearly his reasoning. A: Patient was explained the risks of leaving the hospital. Informed the resident and attending of the situation. Patient eventually signed the AMA form. P: Patient was subsequently discharged AMA.
[2018-06-05] MEDS ORDERED: CLOPIDOGREL75 M1 PO (09:20)
[2018-06-05 10:11] LABS: GRANULOCYTE % 86.8 % (42.2-75.2)
== END 2018-06-05 09:35 | disposition left against medical advice (07) | DRG 69 ==
LOC: ERH 18:42 → 1NO 23:33 → ERHI 23:33 → ENRESERV 06-04 15:32 → ENTRNSPT 06-04 16:57 → EDTRNSPTSTS 06-04 17:00 → EDTRNSPT 06-04 17:00 → CMPTRNSPT 06-04 17:21 → 1NO 06-04 17:24 → ENPENDDIS 06-05 09:12 → 1NO 06-05 09:35
PROVIDERS: Emergency Medicine; Internal Medicine
DX: G45.9 Transient cerebral ischemic attack, unspecified (principal); J44.1 Chronic obstructive pulmonary disease with (acute) exacerbation; I50.32 Chronic diastolic (congestive) heart failure; Z79.84 Long term (current) use of oral hypoglycemic drugs; I11.0 Hypertensive heart disease with heart failure; E78.5 Hyperlipidemia, unspecified; R47.81 Slurred speech; I67.9 Cerebrovascular disease, unspecified; E11.65 Type 2 diabetes mellitus with hyperglycemia; G83.24 Monoplegia of upper limb affecting left nondominant side; R60.0 Localized edema; I69.992 Facial weakness following unspecified cerebrovascular disease; Z53.21 Procedure and treatment not carried out due to patient leaving prior to being seen by health care provider; E11.51 Type 2 diabetes mellitus with diabetic peripheral angiopathy without gangrene; F17.210 Nicotine dependence, cigarettes, uncomplicated
CPT/HCPCS: 1NP; 70551; ERO; 36592; 80307; 82436; 93005; 93010; 97116-GO; 97161-GP; J2920; J3490